=== PATIENT | male | born 1955 | race Caucasian/White ===

== ENCOUNTER 2018-06-14 19:17 | Inpatient (IN) | payer BC ==
[2018-06-14] MEDS ORDERED: Ondansetron 4 MG/2 ML SDV IVPUSH ONE (19:58)
[2018-06-14] MEDS ORDERED: Sodium Chloride 0.9% 1,000 ML IV STA (19:58)
[2018-06-14] MEDS ORDERED: HYDROmorphone 1 MG/ML Syringe IVPUSH ONE ×2 (19:59→22:02)
[2018-06-14] MEDS: Sodium Chloride 0.9% 10 ML Syringe FLUSH PRN ×2 (20:14→21:57)
--- NOTE | 2018-06-14 20:43 | EDM.PDOC ---
ED HPI GENERAL MEDICAL PROBLEM - General Chief Complaint: Abdominal Pain Stated Complaint: ABDOMINAL PAIN Time Seen by Provider: 06/14/18 19:32 Source of Information: Reports: Patient History Limitations: Reports: No Limitations - History of Present Illness INITIAL COMMENTS - FREE TEXT/NARRATIVE: The patient presents with generalized abdominal pain. This started earlier today. He denies nausea, vomiting, diarrhea or dysuria. He says the pain is sharp and knife like. He had his appendix removed years ago and he says the pain is like that but worse. He still has his gallbladder. He developed chills tonight. He has not been around anyone who is sick and he has not eaten any bad food. He denies chest pain. He says the pain is made worse by deep breathing. Onset: Gradual Duration: Hour(s): Location: Reports: Abdomen Quality: Reports: Sharp Severity: Moderate Improves with: Reports: None Worsens with: Reports: None Associated Symptoms: Reports: Fever/Chills. Denies: Chest Pain, Cough, Headaches, Nausea/Vomiting, Shortness of Breath Abdominal Pain Score (Numeric/FACES): 9 - Related Data Allergies Allergy/AdvReac Type Severity Reaction Status Date / Time No Known Allergies Allergy Verified 04/26/14 08:07 Home Meds: Home Meds Aspirin [Halfprin] 81 mg PO DAILY 06/14/18 [History] Chlorthalidone 25 mg PO DAILY 06/14/18 [History] Pravastatin Sodium 10 mg PO DAILY 06/14/18 [History] Tiotropium Br/Olodaterol HCl [Stiolto Respimat Inhal [place]] 2 puff INH DAILY 04/03 [History] buPROPion HCl [Wellbutrin Xl] 150 mg PO DAILY 06/14/18 [History] Past Medical History HEENT History: Reports: Impaired Vision Cardiovascular History: Reports: High Cholesterol Respiratory History: Reports: COPD, Pulmonary Fibrosis, Sleep Apnea Psychiatric History: Reports: Depression - Past Surgical History GI Surgical History: Reports: Appendectomy Musculoskeletal Surgical History: Reports: Shoulder Surgery Social & Family History - Family History Family Medical History: Noncontributory - Tobacco Use Smoking Status *Q: Former Smoker Used Tobacco, but Quit: Yes Month/Year Tobacco Last Used: 1998 - Caffeine Use Caffeine Use: Reports: Coffee - Recreational Drug Use Recreational Drug Use: No ED ROS GENERAL - Review of Systems Review Of Systems: See Below Constitutional: Reports: Chills. Denies: Fever HEENT: Reports: No Symptoms Respiratory: Reports: No Symptoms Cardiovascular: Reports: No Symptoms Endocrine: Reports: No Symptoms GI/Abdominal: Reports: Abdominal Pain. Denies: Diarrhea, Nausea, Vomiting : Reports: No Symptoms Musculoskeletal: Reports: No Symptoms ED EXAM, GI/ABD - Physical Exam Exam: See Below Exam Limited By: No Limitations General Appearance: Alert, No Apparent Distress Ears: Normal External Exam Nose: Normal Inspection Head: Atraumatic, Normocephalic Neck: Normal Inspection Respiratory/Chest: No Respiratory Distress, Lungs Clear, Normal Breath Sounds Cardiovascular: Regular Rate, Rhythm, No Edema, No Murmur GI/Abdominal Exam: Soft, No Organomegaly, No Mass, Distended (mild), Tender ( Moderate generalized pain upon palpation) Course - Vital Signs Last Recorded V/S: Last Vital Signs Temp 97.1 F 06/14/18 19:35 Pulse 59 L 06/14/18 19:35 Resp 16 06/14/18 19:35 BP 161/101 H 06/14/18 19:35 Pulse Ox 96 06/14/18 19:35 - Orders/Labs/Meds Orders: Active Orders 24 hr Category Date Time Status Peripheral IV Care [RC] . DIRECTED Care 06/14/18 19:58 Active Abdomen Ltd [US] Stat Exams 06/14/18 23:27 Ordered Abdomen Pelvis w Cont [CT] Stat Exams 06/14/18 19:58 Ordered ETOH [ETHANOL BLOOD MEDICAL] [CHEM] Stat Lab 06/15/18 00:04 Received Sodium Chloride 0.9% [Normal Saline] 1,000 ml Med 06/14/18 22:45 Active IV ASDIRECTED Sodium Chloride 0.9% [Saline Flush] Med 06/14/18 19:58 Active 10 ml FLUSH ASDIRECTED PRN ED Antiemetic Medication Reflex [OM.PC] Stat Oth 06/14/18 19:58 Ordered Peripheral IV Insertion Adult [OM.PC] Stat Oth 06/14/18 19:58 Ordered Medication Orders Sodium Chloride (Normal Saline) 1,000 mls @ 150 mls/hr IV ASDIRECTED ADINA Last Admin: 06/14/18 22:41 Dose: 150 mls/hr Sodium Chloride (Saline Flush) 10 ml FLUSH ASDIRECTED PRN PRN Reason: Keep Vein Open Last Admin: 06/14/18 21:57 Dose: 10 ml Admin: 06/14/18 20:14 Dose: 10 ml Labs: Laboratory Tests 06/14/18 06/14/18 06/14/18 Range/Units 19:52 19:52 22:00 WBC 12.24 H (4.23-9.07) K/mm3 RBC 5.41 (4.63-6.08) M/mm3 Hgb 16.2 (13.7-17.5) gm/L Hct 46.5 (40.1-51.0) % MCV 86.0 (79.0-92.2) fl MCH 29.9 (25.7-32.2) pg MCHC 34.8 (32.2-35.5) g/dl RDW Std Deviation 40.9 (35.1-43.9) fL Plt Count 153 L (163-337) K/mm3 Neut % (Auto) 91.4 H (34.0-67.9) % Lymph % (Auto) 4.5 L (21.8-53.1) % [place] % (Auto) 3.7 L (5.3-12.2) % Eos % (Auto) 0.1 L (0.8-7.0) Baso % (Auto) 0.2 (0.1-1.2) % Neut # (Auto) 11.20 H (1.78-5.38) K/mm3 Lymph # (Auto) 0.55 L (1.32-3.57) K/mm3 [place] # (Auto) 0.45 (0.30-0.82) K/mm3 Eos # (Auto) 0.01 L (0.04-0.54) K/mm3 Baso # (Auto) 0.02 (0.01-0.08) K/mm3 Manual Slide Review Abnormal smear Sodium 139 (136-145) mEq/L Potassium 2.9 L (3.5-5.1) mEq/L Chloride 101 (98-107) mEq/L Carbon Dioxide 27 (21-32) mEq/L Anion Gap 13.9 (5-15) BUN 18 (7-18) mg/dL Creatinine 1.3 (0.7-1.3) mg/dL Est Cr Clr Drug Dosing 58.46 mL/min Estimated GFR (MDRD) 56 (>60) mL/min BUN/Creatinine Ratio 13.8 L (14-18) Glucose 180 H (74-106) mg/dL Calcium 9.6 (8.5-10.1) mg/dL Total Bilirubin 0.9 (0.2-1.0) mg/dL AST 50 H (15-37) U/L ALT 70 H (16-63) U/L Alkaline Phosphatase 69 (46-116) U/L Total Protein 7.3 (6.4-8.2) g/dl Albumin 4.4 (3.4-5.0) g/dl Globulin 2.9 gm/dL Albumin/Globulin Ratio 1.5 (1-2) Lipase 61473 H (73-393) U/L Urine Color Yellow (Yellow) Urine Appearance Clear (Clear) Urine pH 7.0 (5.0-8.0) Ur Specific [place] 1.020 (1.005-1.030) Urine Protein Trace H (Negative) Urine Glucose (UA) Negative (Negative) Urine Ketones 3+ H (Negative) Urine Occult Blood Negative (Negative) Urine Nitrite Negative (Negative) Urine Bilirubin Negative (Negative) Urine Urobilinogen 0.2 (0.2-1.0) Ur Leukocyte Esterase Negative (Negative) Urine RBC Not seen (0-5) /hpf Urine WBC Not seen (0-5) /hpf Ur Epithelial Cells Not seen (0-5) /hpf Urine Bacteria Occasional (FEW) /hpf Urine Mucus Rare H (FEW) /hpf Meds: Medications Generic Name Dose Route Start Last Admin Trade Name Freq PRN Reason Stop Dose Admin Sodium Chloride 1,000 mls @ 150 mls/hr 06/14/18 22:45 06/14/18 22:41 Normal Saline IV 150 mls/hr ASDIRECTED ADINA Administration Sodium Chloride 10 ml 06/14/18 19:58 06/14/18 21:57 Saline Flush FLUSH 10 ml ASDIRECTED PRN Administration Keep Vein Open Discontinued Medications Generic Name Dose Route Start Last Admin Trade Name Freq PRN Reason Stop Dose Admin Diatrizoate Meglum/Diatrizoate Sod 90 ml 06/14/18 21:24 06/14/18 21:56 Gastrografin 37% PO 06/14/18 21:25 90 ml ONETIME ONE Administration Hydromorphone HCl 1 mg 06/14/18 19:59 06/14/18 20:14 Dilaudid IVPUSH 06/14/18 20:00 1 mg ONETIME ONE Administration Hydromorphone HCl 1 mg 06/14/18 22:02 06/14/18 22:10 Dilaudid IVPUSH 06/14/18 22:03 1 mg ONETIME ONE Administration Sodium Chloride 1,000 mls @ 1,000 mls/hr 06/14/18 19:58 06/14/18 20:14 Normal Saline IV 06/14/18 20:57 1,000 mls/hr .BOLUS STA Administration Iopamidol 100 ml 06/14/18 21:24 06/14/18 21:56 Isovue-370 (76%) IV 06/14/18 21:25 100 ml ONETIME ONE Administration Ondansetron HCl 4 mg 06/14/18 19:58 06/14/18 20:14 Zofran IVPUSH 06/14/18 19:59 4 mg ONETIME ONE Administration - Re-Assessments/Exams Free Text/Narrative Re-Assessment/Exam: 06/14/18 20:45 I ordered an IV NS 500ml bolus, zofran 4mg IV, dilaudid 1mg IV, labs, UA and a CT of his abdomen and pelvis. 06/15/18 00:27 His WBC was elevated at 12.24. His K was low at 2.9. His glucose was elevated at 180. His AST was elevated at 50 and ALT is 70. His lipase is very elevated at 18,290. I asked the patient if he drinks and he says no not for 20 years. I ordered a CT and it showed acute pancreatitis. Possible gallbladder wall thickening. Correlate with right upper quadrant US if indicated.d Right basilar atelectasis/infiltrate. I ordered and US and it did not show any gallbladder wall thickening or duct dilatation. I talked to Dr Vergara and she agreed to the admission. Departure - Departure Time of Disposition: 00:30 Disposition: Admitted As Inpatient 68 Condition: Serious Clinical Impression: Pancreatitis Qualifiers: Chronicity: acute Pancreatitis type: other Acute pancreatitis complication: no infection or necrosis Qualified Code(s): K85.80 - Other acute pancreatitis without necrosis or infection - Discharge Information Referrals: Yessi Arthur NP [Primary Care Provider] - Forms: ED Department Discharge - My Orders Last 24 Hours: My Active Orders 06/14/18 19:58 Peripheral IV Care [RC] . DIRECTED Abdomen Pelvis w Cont [CT] Stat Sodium Chloride 0.9% [Saline Flush] 10 ml FLUSH ASDIRECTED PRN ED Antiemetic Medication Reflex [OM.PC] Stat Peripheral IV Insertion Adult [OM.PC] Stat 06/14/18 22:45 Sodium Chloride 0.9% [Normal Saline] 1,000 ml IV ASDIRECTED 06/14/18 23:27 Abdomen Ltd [US] Stat 06/15/18 00:04 ETOH [ETHANOL BLOOD MEDICAL] [CHEM] Stat - Assessment/Plan Last 24 Hours: My Active Orders 06/14/18 19:58 Peripheral IV Care [RC] . DIRECTED Abdomen Pelvis w Cont [CT] Stat Sodium Chloride 0.9% [Saline Flush] 10 ml FLUSH ASDIRECTED PRN ED Antiemetic Medication Reflex [OM.PC] Stat Peripheral IV Insertion Adult [OM.PC] Stat 06/14/18 22:45 Sodium Chloride 0.9% [Normal Saline] 1,000 ml IV ASDIRECTED 06/14/18 23:27 Abdomen Ltd [US] Stat 06/15/18 00:04 ETOH [ETHANOL BLOOD MEDICAL] [CHEM] Stat
[2018-06-14] MEDS ORDERED: Iopamidol 755 Mg/ML 200 ML Bottle IV ONE (21:24)
[2018-06-14] MEDS ORDERED: Diatrizoate Meglumine/Diatrizoate Sodium 37% 120 ML Bottle PO ONE (21:24)
[2018-06-14] MEDS ORDERED: Sodium Chloride 0.9% 1,000 ML IV SCH (22:45)
[2018-06-15] MEDS ORDERED: HYDROmorphone 1 MG/ML Syringe IVPUSH ONE ×2 (01:05→01:58)
[2018-06-15] MEDS ORDERED: HYDROmorphone 1 MG/ML Syringe ONE (01:45)
[2018-06-15] MEDS ORDERED: Ondansetron 4 MG/2 ML SDV IVPUSH PRN (02:37)
[2018-06-15] MEDS ORDERED: HYDROmorphone 1 MG/ML Syringe IVPUSH PRN (02:38)
[2018-06-15] MEDS ORDERED: NS + KCl 20mEq/L 1,000 ML IV SCH (02:45)
[2018-06-15] MEDS: Potassium Chloride 10 MEQ in Premix Bag 1 BAG IV SCH ×2 (04:16→05:40)
[2018-06-15] MEDS: HYDROmorphone 1 MG/ML Syringe IVPUSH PRN ×4 (05:33→20:43)
[2018-06-15] MEDS: NS + KCl 20mEq/L 1,000 ML IV SCH ×3 (05:33→20:44)
--- NOTE | 2018-06-15 07:17 | US ---
Limited abdominal ultrasound: Multiple real-time images of the upper right abdomen were obtained. Comparison: No prior abdominal imaging. Technologist's note: Extremely limited exam due to overlying bowel gas, intercostal scan, limited window Pancreas poorly seen. Small portion of the visualized portions appear within normal limits. Liver shows no discrete abnormality. Right kidney shows no hydronephrosis or mass and has a length of 11.1 cm. No shadowing gallstones are seen. Gallbladder wall shows no discrete thickening. Common bile duct is normal in size. Inferior vena cava is patent. Portal vein shows normal hepatopedal flow. Impression: 1. Less than optimal study as noted above. No discrete abnormality is appreciated on right upper quadrant abdominal ultrasound. Diagnostic code #2 I agree with preliminary report from [facility], finalized on 06/15/18, 1:42 AM Central Time
--- NOTE | 2018-06-15 07:17 | CT ---
CT abdomen and pelvis Technique: Multiple axial sections were obtained from above the dome of the diaphragm inferiorly through the pubic symphysis. Intravenous and oral contrast was utilized. Comparison no prior abdominal imaging. Findings: Atelectasis is noted within both lung bases, worse on the right side. Small amount of contrast reflux is noted into the distal esophagus. Liver contains no focal abnormality. Gallbladder shows no calcified gallstones. Spleen appears within normal limits. Inflammatory change noted around the pancreas. Adrenal glands show no nodule. Kidneys show symmetric contrast enhancement with no hydronephrosis or mass. Abdominal aorta shows atherosclerotic change which continues into the iliac vessels. No retroperitoneal adenopathy or mesenteric abnormalities are seen. No pelvic mass or adenopathy is noted. Small fat-containing right inguinal hernia is seen. Bone window settings were reviewed which show disc space narrowing at L5-S1. Impression: 1. Mild inflammatory change around the pancreas having the appearance of pancreatitis. No abscess or phlegmon seen at this time. 2. Atelectasis within both lung bases, worse on the right side. 3. Other incidental findings. Diagnostic code #3 I agree with preliminary report from [facility], finalized on 06/15/18, 12:24 AM Central Time
--- NOTE | 2018-06-15 10:57 | PCM.SN ---
- Free Text/Narrative Note: Patient admitted for pancreatitis. No gallstones noted on US of RUQ. No surgical intervention needed. Would monitor for complications of pancreatitis ( mostly development of pseudocyst within next month or so). For now just fluids and pain control needed.
[2018-06-15] MEDS: OLODATEROL HCL INH SCH (13:55)
[2018-06-15] MEDS: TIOTROPIUM BR INH SCH (13:55)
--- NOTE | 2018-06-15 16:07 | PCM.PN ---
- General Info Date of Service: 06/15/18 - Patient Data Vitals - Most Recent: Last Vital Signs Temp 36.7 C 06/15/18 09:14 Pulse 67 06/15/18 09:14 Resp 15 06/15/18 09:14 BP 107/66 06/15/18 09:14 Pulse Ox 96 06/15/18 15:26 Weight - Most Recent: 87.226 kg I&O - Last 24 Hours: Intake & Output 06/15/18 06/15/18 06/15/18 06:59 14:59 22:59 Intake Total 650 Output Total 400 Balance 250 Lab Results Last 24 Hours: Laboratory Results - last 24 hr 06/14/18 06/14/18 06/14/18 Range/Units 19:52 19:52 19:52 WBC 12.24 H (4.23-9.07) K/mm3 RBC 5.41 (4.63-6.08) M/mm3 Hgb 16.2 (13.7-17.5) gm/L Hct 46.5 (40.1-51.0) % MCV 86.0 (79.0-92.2) fl MCH 29.9 (25.7-32.2) pg MCHC 34.8 (32.2-35.5) g/dl RDW Std Deviation 40.9 (35.1-43.9) fL Plt Count 153 L (163-337) K/mm3 Neut % (Auto) 91.4 H (34.0-67.9) % Lymph % (Auto) 4.5 L (21.8-53.1) % [place] % (Auto) 3.7 L (5.3-12.2) % Eos % (Auto) 0.1 L (0.8-7.0) Baso % (Auto) 0.2 (0.1-1.2) % Neut # (Auto) 11.20 H (1.78-5.38) K/mm3 Lymph # (Auto) 0.55 L (1.32-3.57) K/mm3 [place] # (Auto) 0.45 (0.30-0.82) K/mm3 Eos # (Auto) 0.01 L (0.04-0.54) K/mm3 Baso # (Auto) 0.02 (0.01-0.08) K/mm3 Manual Slide Review Abnormal smear Sodium 139 (136-145) mEq/L Potassium 2.9 L (3.5-5.1) mEq/L Chloride 101 (98-107) mEq/L Carbon Dioxide 27 (21-32) mEq/L Anion Gap 13.9 (5-15) BUN 18 (7-18) mg/dL Creatinine 1.3 (0.7-1.3) mg/dL Est Cr Clr Drug Dosing 58.46 mL/min Estimated GFR (MDRD) 56 (>60) mL/min BUN/Creatinine Ratio 13.8 L (14-18) Glucose 180 H (74-106) mg/dL Lactic Acid (0.4-2.0) mmol/L Calcium 9.6 (8.5-10.1) mg/dL Magnesium (1.8-2.4) mg/dl Total Bilirubin 0.9 (0.2-1.0) mg/dL AST 50 H (15-37) U/L ALT 70 H (16-63) U/L Alkaline Phosphatase 69 (46-116) U/L Total Protein 7.3 (6.4-8.2) g/dl Albumin 4.4 (3.4-5.0) g/dl Globulin 2.9 gm/dL Albumin/Globulin Ratio 1.5 (1-2) Lipase 09182 H (73-393) U/L Urine Color (Yellow) Urine Appearance (Clear) Urine pH (5.0-8.0) Ur Specific [place] (1.005-1.030) Urine Protein (Negative) Urine Glucose (UA) (Negative) Urine Ketones (Negative) Urine Occult Blood (Negative) Urine Nitrite (Negative) Urine Bilirubin (Negative) Urine Urobilinogen (0.2-1.0) Ur Leukocyte Esterase (Negative) Urine RBC (0-5) /hpf Urine WBC (0-5) /hpf Ur Epithelial Cells (0-5) /hpf Urine Bacteria (FEW) /hpf Urine Mucus (FEW) /hpf Ethyl Alcohol 0.00 (0.00) gm% 06/14/18 06/15/18 06/15/18 Range/Units 22:00 04:40 04:40 WBC 10.64 H (4.23-9.07) K/mm3 RBC 4.53 L (4.63-6.08) M/mm3 Hgb 13.7 (13.7-17.5) gm/L Hct 39.8 L (40.1-51.0) % MCV 87.9 (79.0-92.2) fl MCH 30.2 (25.7-32.2) pg MCHC 34.4 (32.2-35.5) g/dl RDW Std Deviation 41.1 (35.1-43.9) fL Plt Count 138 L (163-337) K/mm3 Neut % (Auto) 86.5 H (34.0-67.9) % Lymph % (Auto) 6.9 L (21.8-53.1) % [place] % (Auto) 5.8 (5.3-12.2) % Eos % (Auto) 0.6 L (0.8-7.0) Baso % (Auto) 0.1 (0.1-1.2) % Neut # (Auto) 9.21 H (1.78-5.38) K/mm3 Lymph # (Auto) 0.73 L (1.32-3.57) K/mm3 [place] # (Auto) 0.62 (0.30-0.82) K/mm3 Eos # (Auto) 0.06 (0.04-0.54) K/mm3 Baso # (Auto) 0.01 (0.01-0.08) K/mm3 Manual Slide Review Abnormal smear Sodium 139 (136-145) mEq/L Potassium 3.4 L (3.5-5.1) mEq/L Chloride 103 (98-107) mEq/L Carbon Dioxide 28 (21-32) mEq/L Anion Gap 11.4 (5-15) BUN 15 (7-18) mg/dL Creatinine 1.2 (0.7-1.3) mg/dL Est Cr Clr Drug Dosing 63.33 mL/min Estimated GFR (MDRD) > 60 (>60) mL/min BUN/Creatinine Ratio 12.5 L (14-18) Glucose 121 H (74-106) mg/dL Lactic Acid (0.4-2.0) mmol/L Calcium 8.5 (8.5-10.1) mg/dL Magnesium 1.8 (1.8-2.4) mg/dl Total Bilirubin 0.7 (0.2-1.0) mg/dL AST 27 (15-37) U/L ALT 54 (16-63) U/L Alkaline Phosphatase 57 (46-116) U/L Total Protein 6.1 L (6.4-8.2) g/dl Albumin 3.4 (3.4-5.0) g/dl Globulin 2.7 gm/dL Albumin/Globulin Ratio 1.3 (1-2) Lipase 6630 H (73-393) U/L Urine Color Yellow (Yellow) Urine Appearance Clear (Clear) Urine pH 7.0 (5.0-8.0) Ur Specific [place] 1.020 (1.005-1.030) Urine Protein Trace H (Negative) Urine Glucose (UA) Negative (Negative) Urine Ketones 3+ H (Negative) Urine Occult Blood Negative (Negative) Urine Nitrite Negative (Negative) Urine Bilirubin Negative (Negative) Urine Urobilinogen 0.2 (0.2-1.0) Ur Leukocyte Esterase Negative (Negative) Urine RBC Not seen (0-5) /hpf Urine WBC Not seen (0-5) /hpf Ur Epithelial Cells Not seen (0-5) /hpf Urine Bacteria Occasional (FEW) /hpf Urine Mucus Rare H (FEW) /hpf Ethyl Alcohol (0.00) gm% 06/15/18 Range/Units 04:40 WBC (4.23-9.07) K/mm3 RBC (4.63-6.08) M/mm3 Hgb (13.7-17.5) gm/L Hct (40.1-51.0) % MCV (79.0-92.2) fl MCH (25.7-32.2) pg MCHC (32.2-35.5) g/dl RDW Std Deviation (35.1-43.9) fL Plt Count (163-337) K/mm3 Neut % (Auto) (34.0-67.9) % Lymph % (Auto) (21.8-53.1) % [place] % (Auto) (5.3-12.2) % Eos % (Auto) (0.8-7.0) Baso % (Auto) (0.1-1.2) % Neut # (Auto) (1.78-5.38) K/mm3 Lymph # (Auto) (1.32-3.57) K/mm3 [place] # (Auto) (0.30-0.82) K/mm3 Eos # (Auto) (0.04-0.54) K/mm3 Baso # (Auto) (0.01-0.08) K/mm3 Manual Slide Review Sodium (136-145) mEq/L Potassium (3.5-5.1) mEq/L Chloride (98-107) mEq/L Carbon Dioxide (21-32) mEq/L Anion Gap (5-15) BUN (7-18) mg/dL Creatinine (0.7-1.3) mg/dL Est Cr Clr Drug Dosing mL/min Estimated GFR (MDRD) (>60) mL/min BUN/Creatinine Ratio (14-18) Glucose (74-106) mg/dL Lactic Acid 2.1 H (0.4-2.0) mmol/L Calcium (8.5-10.1) mg/dL Magnesium (1.8-2.4) mg/dl Total Bilirubin (0.2-1.0) mg/dL AST (15-37) U/L ALT (16-63) U/L Alkaline Phosphatase (46-116) U/L Total Protein (6.4-8.2) g/dl Albumin (3.4-5.0) g/dl Globulin gm/dL Albumin/Globulin Ratio (1-2) Lipase (73-393) U/L Urine Color (Yellow) Urine Appearance (Clear) Urine pH (5.0-8.0) Ur Specific [place] (1.005-1.030) Urine Protein (Negative) Urine Glucose (UA) (Negative) Urine Ketones (Negative) Urine Occult Blood (Negative) Urine Nitrite (Negative) Urine Bilirubin (Negative) Urine Urobilinogen (0.2-1.0) Ur Leukocyte Esterase (Negative) Urine RBC (0-5) /hpf Urine WBC (0-5) /hpf Ur Epithelial Cells (0-5) /hpf Urine Bacteria (FEW) /hpf Urine Mucus (FEW) /hpf Ethyl Alcohol (0.00) gm% Med Orders - Current: Current Medications Hydromorphone HCl (Dilaudid) 1 mg IVPUSH Q2H PRN PRN Reason: Pain Last Admin: 06/15/18 14:15 Dose: 1 mg Potassium Chloride/Sodium Chloride (Normal Saline With 20 Meq Kcl) 1,000 mls @ 125 mls/hr IV ASDIRECTED [facility] Last Admin: 06/15/18 14:14 Dose: 125 mls/hr Ondansetron HCl (Zofran) 4 mg IVPUSH Q6H PRN PRN Reason: Nausea Tiotropium Br/Olodaterol Hcl [ Stiolto Respimat] Ptom 0 each INH DAILY@0600 [facility] Last Admin: 06/15/18 13:55 Dose: 2 each Sodium Chloride (Saline Flush) 10 ml FLUSH ASDIRECTED PRN PRN Reason: Keep Vein Open Last Admin: 06/14/18 21:57 Dose: 10 ml Discontinued Medications Diatrizoate Meglum/Diatrizoate Sod (Gastrografin 37%) 90 ml PO ONETIME ONE Stop: 06/14/18 21:25 Last Admin: 06/14/18 21:56 Dose: 90 ml Hydromorphone HCl (Dilaudid) 1 mg IVPUSH ONETIME ONE Stop: 06/14/18 20:00 Last Admin: 06/14/18 20:14 Dose: 1 mg Hydromorphone HCl (Dilaudid) 1 mg IVPUSH ONETIME ONE Stop: 06/14/18 22:03 Last Admin: 06/14/18 22:10 Dose: 1 mg Hydromorphone HCl (Dilaudid) 1 mg IVPUSH ONETIME ONE Stop: 06/15/18 01:06 Last Admin: 06/15/18 01:09 Dose: 1 mg Hydromorphone HCl (Dilaudid) Confirm Administered Dose 1 mg .ROUTE .STK-MED ONE Stop: 06/15/18 01:46 Last Admin: 06/15/18 02:00 Dose: Not Given Hydromorphone HCl (Dilaudid) 1 mg IVPUSH ONETIME ONE Stop: 06/15/18 01:59 Last Admin: 06/15/18 01:45 Dose: 1 mg Sodium Chloride (Normal Saline) 1,000 mls @ 1,000 mls/hr IV .BOLUS STA Stop: 06/14/18 20:57 Last Admin: 06/14/18 20:14 Dose: 1,000 mls/hr Sodium Chloride (Normal Saline) 1,000 mls @ 150 mls/hr IV ASDIRECTED [facility] Last Admin: 06/14/18 22:41 Dose: 150 mls/hr Potassium Chloride 10 meq/ (Premix) 100 mls @ 100 mls/hr IV Q1H ADINA Stop: 06/15/18 05:59 Last Admin: 06/15/18 05:40 Dose: Not Given Iopamidol (Isovue-370 (76%)) 100 ml IV ONETIME ONE Stop: 06/14/18 21:25 Last Admin: 06/14/18 21:56 Dose: 100 ml Ondansetron HCl (Zofran) 4 mg IVPUSH ONETIME ONE Stop: 06/14/18 19:59 Last Admin: 06/14/18 20:14 Dose: 4 mg - My Orders Last 24 Hours: My Active Orders 06/15/18 02:37 Ondansetron [Zofran] 4 mg IVPUSH Q6H PRN 06/15/18 02:38 Oxygen Therapy [RC] PRN 06/15/18 02:43 Sequential Compression Device [OM.PC] Routine 06/15/18 02:44 Antiembolic Devices [RC] 09,21 CIWAA Assessment [RC] Q6HR 06/15/18 03:04 Resuscitation Status Routine 06/15/18 03:45 HYDROmorphone [Dilaudid] 1 mg IVPUSH Q2H PRN 06/15/18 09:00 Notify Provider Consults [RC] ASDIRECTED 06/15/18 14:00 Patient's Own Medication [Ptom] 0 each INH DAILY@0600 06/15/18 Breakfast NPO [Nothing Per Oral Diet] [DIET]
[2018-06-15] MEDS: Ketorolac 15 MG/ML SDV IVPUSH SCH (17:34)
[2018-06-15] MEDS: Pantoprazole 40 MG Vial IVPUSH SCH (17:34)
--- NOTE | 2018-06-15 17:41 | PCM.HP ---
H&P History of Present Illness - General Date of Service: 06/15/18 Admit Problem/Dx: Admission Diagnosis/Problem Admission Diagnosis/Problem Pancreatitis Source of Information: Patient, Family, Provider History Limitations: Reports: No Limitations - History of Present Illness Initial Comments - Free Text/Narative: 62 year old male complains of sharp, stabbing pain associated with nausea. The patient has a CT of the abdomen/pelvis that suggest mild pancreatitis. He denies fever/chills, vomiting, CP, SOB. Lipase is greater than 10, 000. There is no food intolerance. A ABD US was inconclusive. The patient is a full code. Onset of Symptoms: Reports: Sudden Symptom Onset Date: 06/14/18 Duration of Symptoms: Reports: Hour(s):, Getting Worse Location: Reports: Abdomen Quality: Reports: Sharp, Stabbing Severity: Moderate Improves with: Reports: Medication Worsens with: Reports: None Associated Symptoms: Reports: Loss of Appetite, Nausea/Vomiting, Weakness Abdominal Pain Score (Numeric/FACES): 2 - Related Data Allergies/Adverse Reactions: Allergies Allergy/AdvReac Type Severity Reaction Status Date / Time No Known Allergies Allergy Verified 06/15/18 03:08 Home Medications: Home Meds Aspirin [Halfprin] 81 mg PO DAILY 06/14/18 [History] Chlorthalidone 25 mg PO DAILY 06/14/18 [History] Pravastatin Sodium 10 mg PO DAILY 06/14/18 [History] Tiotropium Br/Olodaterol HCl [Stiolto Respimat Inhal [place]] 2 puff INH DAILY@ 0600 06/14/18 [History] buPROPion HCl [Wellbutrin Xl] 150 mg PO DAILY 06/14/18 [History] Past Medical History HEENT History: Reports: Impaired Vision Cardiovascular History: Reports: High Cholesterol Respiratory History: Reports: COPD, Pulmonary Fibrosis, Sleep Apnea Psychiatric History: Reports: Depression - Past Surgical History GI Surgical History: Reports: Appendectomy Musculoskeletal Surgical History: Reports: Shoulder Surgery Social & Family History - Family History Family Medical History: Noncontributory - Tobacco Use Smoking Status *Q: Former Smoker Used Tobacco, but Quit: Yes Month/Year Tobacco Last Used: 1998 Second Hand Smoke Exposure: No - Caffeine Use Caffeine Use: Reports: Coffee - Recreational Drug Use Recreational Drug Use: No H&P Review of Systems - Review of Systems: Review Of Systems: See Below General: Reports: Weakness, Decreased Appetite HEENT: Reports: No Symptoms Pulmonary: Reports: No Symptoms Cardiovascular: Reports: No Symptoms Gastrointestinal: Reports: Abdominal Pain, Nausea Genitourinary: Reports: No Symptoms Musculoskeletal: Reports: No Symptoms Skin: Reports: No Symptoms Psychiatric: Reports: No Symptoms Neurological: Reports: No Symptoms Hematologic/Lymphatic: Reports: No Symptoms Immunologic: Reports: No Symptoms Exam - Exam Exam: See Below - Vital Signs Vital Signs: Last Vital Signs Temp 36.6 C 06/15/18 17:14 Pulse 74 06/15/18 17:14 Resp 16 06/15/18 17:14 BP 97/56 L 06/15/18 17:14 Pulse Ox 92 L 06/15/18 17:14 Weight: 87.226 kg - Exam Quality Assessment: DVT Prophylaxis General: Alert, Oriented, Cooperative, Mild Distress HEENT: Nares Patent, Normal Nasal Septum, Pupils Equal, Pupils Reactive, PERRLA Neck: Trachea Midline Lungs: Normal Respiratory Effort Cardiovascular: Regular Rate, Regular Rhythm GI/Abdominal Exam: Normal Bowel Sounds, Soft, No Organomegaly, Tender (RUQ) (Male) Exam: Deferred Rectal (Males) Exam: Deferred Back Exam: Normal Inspection Extremities: Normal Inspection, Non-Tender, Normal Capillary Refill Neurological: Cranial Nerves Intact Neuro Extensive - Mental Status: Alert, Oriented x3, Normal Mood/Affect, Normal Cognition, Memory Intact Neuro Extensive - Motor, Sensory, Reflexes: CN II-XII Intact Psychiatric: Alert, Normal Affect, Normal Mood - Patient Data Lab Results Last 24 hrs: Laboratory Results - last 24 hr 06/14/18 06/14/18 06/14/18 Range/Units 19:52 19:52 19:52 WBC 12.24 H (4.23-9.07) K/mm3 RBC 5.41 (4.63-6.08) M/mm3 Hgb 16.2 (13.7-17.5) gm/L Hct 46.5 (40.1-51.0) % MCV 86.0 (79.0-92.2) fl MCH 29.9 (25.7-32.2) pg MCHC 34.8 (32.2-35.5) g/dl RDW Std Deviation 40.9 (35.1-43.9) fL Plt Count 153 L (163-337) K/mm3 Neut % (Auto) 91.4 H (34.0-67.9) % Lymph % (Auto) 4.5 L (21.8-53.1) % [place] % (Auto) 3.7 L (5.3-12.2) % Eos % (Auto) 0.1 L (0.8-7.0) Baso % (Auto) 0.2 (0.1-1.2) % Neut # (Auto) 11.20 H (1.78-5.38) K/mm3 Lymph # (Auto) 0.55 L (1.32-3.57) K/mm3 [place] # (Auto) 0.45 (0.30-0.82) K/mm3 Eos # (Auto) 0.01 L (0.04-0.54) K/mm3 Baso # (Auto) 0.02 (0.01-0.08) K/mm3 Manual Slide Review Abnormal smear Sodium 139 (136-145) mEq/L Potassium 2.9 L (3.5-5.1) mEq/L Chloride 101 (98-107) mEq/L Carbon Dioxide 27 (21-32) mEq/L Anion Gap 13.9 (5-15) BUN 18 (7-18) mg/dL Creatinine 1.3 (0.7-1.3) mg/dL Est Cr Clr Drug Dosing 58.46 mL/min Estimated GFR (MDRD) 56 (>60) mL/min BUN/Creatinine Ratio 13.8 L (14-18) Glucose 180 H (74-106) mg/dL Lactic Acid (0.4-2.0) mmol/L Calcium 9.6 (8.5-10.1) mg/dL Magnesium (1.8-2.4) mg/dl Total Bilirubin 0.9 (0.2-1.0) mg/dL AST 50 H (15-37) U/L ALT 70 H (16-63) U/L Alkaline Phosphatase 69 (46-116) U/L Total Protein 7.3 (6.4-8.2) g/dl Albumin 4.4 (3.4-5.0) g/dl Globulin 2.9 gm/dL Albumin/Globulin Ratio 1.5 (1-2) Lipase 38179 H (73-393) U/L Urine Color (Yellow) Urine Appearance (Clear) Urine pH (5.0-8.0) Ur Specific [place] (1.005-1.030) Urine Protein (Negative) Urine Glucose (UA) (Negative) Urine Ketones (Negative) Urine Occult Blood (Negative) Urine Nitrite (Negative) Urine Bilirubin (Negative) Urine Urobilinogen (0.2-1.0) Ur Leukocyte Esterase (Negative) Urine RBC (0-5) /hpf Urine WBC (0-5) /hpf Ur Epithelial Cells (0-5) /hpf Urine Bacteria (FEW) /hpf Urine Mucus (FEW) /hpf Ethyl Alcohol 0.00 (0.00) gm% 06/14/18 06/15/18 06/15/18 Range/Units 22:00 04:40 04:40 WBC 10.64 H (4.23-9.07) K/mm3 RBC 4.53 L (4.63-6.08) M/mm3 Hgb 13.7 (13.7-17.5) gm/L Hct 39.8 L (40.1-51.0) % MCV 87.9 (79.0-92.2) fl MCH 30.2 (25.7-32.2) pg MCHC 34.4 (32.2-35.5) g/dl RDW Std Deviation 41.1 (35.1-43.9) fL Plt Count 138 L (163-337) K/mm3 Neut % (Auto) 86.5 H (34.0-67.9) % Lymph % (Auto) 6.9 L (21.8-53.1) % [place] % (Auto) 5.8 (5.3-12.2) % Eos % (Auto) 0.6 L (0.8-7.0) Baso % (Auto) 0.1 (0.1-1.2) % Neut # (Auto) 9.21 H (1.78-5.38) K/mm3 Lymph # (Auto) 0.73 L (1.32-3.57) K/mm3 [place] # (Auto) 0.62 (0.30-0.82) K/mm3 Eos # (Auto) 0.06 (0.04-0.54) K/mm3 Baso # (Auto) 0.01 (0.01-0.08) K/mm3 Manual Slide Review Abnormal smear Sodium 139 (136-145) mEq/L Potassium 3.4 L (3.5-5.1) mEq/L Chloride 103 (98-107) mEq/L Carbon Dioxide 28 (21-32) mEq/L Anion Gap 11.4 (5-15) BUN 15 (7-18) mg/dL Creatinine 1.2 (0.7-1.3) mg/dL Est Cr Clr Drug Dosing 63.33 mL/min Estimated GFR (MDRD) > 60 (>60) mL/min BUN/Creatinine Ratio 12.5 L (14-18) Glucose 121 H (74-106) mg/dL Lactic Acid (0.4-2.0) mmol/L Calcium 8.5 (8.5-10.1) mg/dL Magnesium 1.8 (1.8-2.4) mg/dl Total Bilirubin 0.7 (0.2-1.0) mg/dL AST 27 (15-37) U/L ALT 54 (16-63) U/L Alkaline Phosphatase 57 (46-116) U/L Total Protein 6.1 L (6.4-8.2) g/dl Albumin 3.4 (3.4-5.0) g/dl Globulin 2.7 gm/dL Albumin/Globulin Ratio 1.3 (1-2) Lipase 6630 H (73-393) U/L Urine Color Yellow (Yellow) Urine Appearance Clear (Clear) Urine pH 7.0 (5.0-8.0) Ur Specific [place] 1.020 (1.005-1.030) Urine Protein Trace H (Negative) Urine Glucose (UA) Negative (Negative) Urine Ketones 3+ H (Negative) Urine Occult Blood Negative (Negative) Urine Nitrite Negative (Negative) Urine Bilirubin Negative (Negative) Urine Urobilinogen 0.2 (0.2-1.0) Ur Leukocyte Esterase Negative (Negative) Urine RBC Not seen (0-5) /hpf Urine WBC Not seen (0-5) /hpf Ur Epithelial Cells Not seen (0-5) /hpf Urine Bacteria Occasional (FEW) /hpf Urine Mucus Rare H (FEW) /hpf Ethyl Alcohol (0.00) gm% 06/15/18 Range/Units 04:40 WBC (4.23-9.07) K/mm3 RBC (4.63-6.08) M/mm3 Hgb (13.7-17.5) gm/L Hct (40.1-51.0) % MCV (79.0-92.2) fl MCH (25.7-32.2) pg MCHC (32.2-35.5) g/dl RDW Std Deviation (35.1-43.9) fL Plt Count (163-337) K/mm3 Neut % (Auto) (34.0-67.9) % Lymph % (Auto) (21.8-53.1) % [place] % (Auto) (5.3-12.2) % Eos % (Auto) (0.8-7.0) Baso % (Auto) (0.1-1.2) % Neut # (Auto) (1.78-5.38) K/mm3 Lymph # (Auto) (1.32-3.57) K/mm3 [place] # (Auto) (0.30-0.82) K/mm3 Eos # (Auto) (0.04-0.54) K/mm3 Baso # (Auto) (0.01-0.08) K/mm3 Manual Slide Review Sodium (136-145) mEq/L Potassium (3.5-5.1) mEq/L Chloride (98-107) mEq/L Carbon Dioxide (21-32) mEq/L Anion Gap (5-15) BUN (7-18) mg/dL Creatinine (0.7-1.3) mg/dL Est Cr Clr Drug Dosing mL/min Estimated GFR (MDRD) (>60) mL/min BUN/Creatinine Ratio (14-18) Glucose (74-106) mg/dL Lactic Acid 2.1 H (0.4-2.0) mmol/L Calcium (8.5-10.1) mg/dL Magnesium (1.8-2.4) mg/dl Total Bilirubin (0.2-1.0) mg/dL AST (15-37) U/L ALT (16-63) U/L Alkaline Phosphatase (46-116) U/L Total Protein (6.4-8.2) g/dl Albumin (3.4-5.0) g/dl Globulin gm/dL Albumin/Globulin Ratio (1-2) Lipase (73-393) U/L Urine Color (Yellow) Urine Appearance (Clear) Urine pH (5.0-8.0) Ur Specific [place] (1.005-1.030) Urine Protein (Negative) Urine Glucose (UA) (Negative) Urine Ketones (Negative) Urine Occult Blood (Negative) Urine Nitrite (Negative) Urine Bilirubin (Negative) Urine Urobilinogen (0.2-1.0) Ur Leukocyte Esterase (Negative) Urine RBC (0-5) /hpf Urine WBC (0-5) /hpf Ur Epithelial Cells (0-5) /hpf Urine Bacteria (FEW) /hpf Urine Mucus (FEW) /hpf Ethyl Alcohol (0.00) gm% Result Diagrams: 06/15/18 04:40 06/15/18 04:40 - Problem List (1) COPD (chronic obstructive pulmonary disease) SNOMED Code(s): 64253637 ICD Code: J44.9 - CHRONIC OBSTRUCTIVE PULMONARY DISEASE, UNSPECIFIED Status : Acute Current Visit: Yes (2) Depression SNOMED Code(s): 81661796 ICD Code: F32.9 - MAJOR DEPRESSIVE DISORDER, SINGLE EPISODE, UNSPECIFIED Status: Acute Current Visit: Yes (3) Hyperlipidemia SNOMED Code(s): 78017084 ICD Code: E78.5 - HYPERLIPIDEMIA, UNSPECIFIED Status: Acute Current Visit : Yes Problem List Initiated/Reviewed/Updated: Yes Orders Last 24hrs: Active Orders 24 hr Category Date Time Status Patient Status [ADT] Routine ADT 06/15/18 00:40 Active Antiembolic Devices [RC] 09,21 Care 06/15/18 02:44 Active CIWAA Assessment [RC] Q6HR Care 06/15/18 02:44 Active Notify Provider Consults [RC] ASDIRECTED Care 06/15/18 09:00 Active Oxygen Therapy [RC] PRN Care 06/15/18 02:38 Active NPO [Nothing Per Oral Diet] [DIET] Diet 06/15/18 Breakfast Active BMP [BASIC METABOLIC PANEL,BMP] [CHEM] DAILY Lab 06/16/18 05:00 Ordered BMP [BASIC METABOLIC PANEL,BMP] [CHEM] DAILY Lab 06/17/18 05:00 Ordered BMP [BASIC METABOLIC PANEL,BMP] [CHEM] DAILY Lab 06/18/18 05:00 Ordered BMP [BASIC METABOLIC PANEL,BMP] [CHEM] DAILY Lab 06/19/18 05:00 Ordered CBC WITH AUTO DIFF [HEME] DAILY Lab 06/16/18 05:00 Ordered CBC WITH AUTO DIFF [HEME] DAILY Lab 06/17/18 05:00 Ordered CBC WITH AUTO DIFF [HEME] DAILY Lab 06/18/18 05:00 Ordered CBC WITH AUTO DIFF [HEME] DAILY Lab 06/19/18 05:00 Ordered CRP [C-REACTIVE PROTEIN] [CHEM] DAILY Lab 06/16/18 05:00 Ordered CRP [C-REACTIVE PROTEIN] [CHEM] DAILY Lab 06/17/18 05:00 Ordered CRP [C-REACTIVE PROTEIN] [CHEM] DAILY Lab 06/18/18 05:00 Ordered CRP [C-REACTIVE PROTEIN] [CHEM] DAILY Lab 06/19/18 05:00 Ordered LIPASE [CHEM] DAILY Lab 06/16/18 05:00 Ordered LIPASE [CHEM] DAILY Lab 06/17/18 05:00 Ordered LIPASE [CHEM] DAILY Lab 06/18/18 05:00 Ordered LIPASE [CHEM] DAILY Lab 06/19/18 05:00 Ordered MAGNESIUM [CHEM] DAILY Lab 06/16/18 05:00 Ordered MAGNESIUM [CHEM] DAILY Lab 06/17/18 05:00 Ordered MAGNESIUM [CHEM] DAILY Lab 06/18/18 05:00 Ordered MAGNESIUM [CHEM] DAILY Lab 06/19/18 05:00 Ordered HYDROmorphone [Dilaudid] Med 06/15/18 03:45 Active 1 mg IVPUSH Q2H PRN Ketorolac [Toradol] Med 06/15/18 18:00 Active 15 mg IVPUSH Q8H NS + KCl 20mEq/L [Normal Saline with 20 mEq KCl] 1,000 Med 06/15/18 00:45 Active ml IV ASDIRECTED Ondansetron [Zofran] Med 06/15/18 02:37 Active 4 mg IVPUSH Q6H PRN Pantoprazole [ProTONIX IV] Med 06/15/18 18:00 Active 40 mg IVPUSH Q12H Patient's Own Medication [Ptom] Med 06/15/18 14:00 Active 0 each INH DAILY@0600 Simvastatin [Zocor] Med 06/16/18 21:00 Active 5 mg PO BEDTIME Sodium Chloride 0.9% [Saline Flush] Med 06/14/18 19:58 Active 10 ml FLUSH ASDIRECTED PRN buPROPion [Wellbutrin XL] Med 06/16/18 09:00 Active 150 mg PO DAILY ED Antiemetic Medication Reflex [OM.PC] Stat Oth 06/14/18 19:58 Ordered Peripheral IV Insertion Adult [OM.PC] Stat Oth 06/14/18 19:58 Ordered Sequential Compression Device [OM.PC] Routine Oth 06/15/18 02:43 Ordered Resuscitation Status Routine Resus Stat 06/15/18 03:04 Ordered Medication Orders Bupropion HCl (Wellbutrin Xl) 150 mg PO DAILY [facility] Hydromorphone HCl (Dilaudid) 1 mg IVPUSH Q2H PRN PRN Reason: Pain Last Admin: 06/15/18 14:15 Dose: 1 mg Admin: 06/15/18 09:45 Dose: 1 mg Admin: 06/15/18 05:33 Dose: 1 mg Potassium Chloride/Sodium Chloride (Normal Saline With 20 Meq Kcl) 1,000 mls @ 125 mls/hr IV ASDIRECTED [facility] Last Admin: 06/15/18 14:14 Dose: 125 mls/hr Infusion: 06/15/18 13:33 Dose: 125 mls/hr Admin: 06/15/18 05:33 Dose: 125 mls/hr Ketorolac Tromethamine (Toradol) 15 mg IVPUSH Q8H [facility] Stop: 06/17/18 10:01 Last Admin: 06/15/18 17:34 Dose: 15 mg Ondansetron HCl (Zofran) 4 mg IVPUSH Q6H PRN PRN Reason: Nausea Pantoprazole Sodium (Protonix Iv) 40 mg IVPUSH Q12H [facility] Last Admin: 06/15/18 17:34 Dose: 40 mg Tiotropium Br/Olodaterol Hcl [ Stiolto Respimat] Ptom 0 each INH DAILY@0600 [facility] Last Admin: 06/15/18 13:55 Dose: 2 each Simvastatin (Zocor) 5 mg PO BEDTIME [facility] Sodium Chloride (Saline Flush) 10 ml FLUSH ASDIRECTED PRN PRN Reason: Keep Vein Open Last Admin: 06/14/18 21:57 Dose: 10 ml Admin: 06/14/18 20:14 Dose: 10 ml Assessment/Plan Comment:: Impression: Acute pancreatitis, NOS Dehydration Hypokalemia Chronic HTN HLD Depression Plan: IVF Pain meds NPO except meds and ice chips Daily labs Home meds DVT/GI prophylaxis
[2018-06-16] MEDS: Ketorolac 15 MG/ML SDV IVPUSH SCH ×3 (02:58→18:14)
[2018-06-16] MEDS: TIOTROPIUM BR INH SCH (05:28)
[2018-06-16] MEDS: OLODATEROL HCL INH SCH (05:28)
[2018-06-16] MEDS: NS + KCl 20mEq/L 1,000 ML IV SCH (05:43)
[2018-06-16] MEDS: Pantoprazole 40 MG Vial IVPUSH SCH (05:43)
[2018-06-16] MEDS: HYDROmorphone 1 MG/ML Syringe IVPUSH PRN (05:49)
[2018-06-16] MEDS ORDERED: Magnesium Sulfate/Water 4 GM in Premix Bag 1 BAG IV ONE (08:05)
[2018-06-16] MEDS ORDERED: Sodium Chloride 0.9% with KCl 1,000 ML IV SCH (08:15)
[2018-06-16] MEDS: buPROPion 150 MG Tab.ER PO SCH (09:55)
[2018-06-16] MEDS: Potassium Chloride 10 MEQ in Premix Bag 1 BAG IV SCH ×2 (09:57→12:00)
--- NOTE | 2018-06-16 16:08 | PCM.PN ---
- General Info Date of Service: 06/16/18 Admission Dx/Problem (Free Text): Admission Diagnosis/Problem Admission Diagnosis/Problem Pancreatitis Subjective Update: Follow Up Functional Status: Reports: Pain Controlled, Tolerating Diet, Ambulating, Urinating, New Symptoms - Review of Systems General: Denies: Fever, Chills HEENT: Reports: No Symptoms Pulmonary: Denies: Shortness of Breath Cardiovascular: Denies: Chest Pain, Dyspnea on Exertion, Lightheadedness Gastrointestinal: Reports: Abdominal Pain (mild), Flatus. Denies: Decreased Appetite, Diarrhea, Difficulty Swallowing, Nausea, Vomiting Genitourinary: Reports: No Symptoms Musculoskeletal: Reports: No Symptoms Skin: Denies: Cyanosis, Bruising Neurological: Reports: Weakness. Denies: Confusion, Difficulty Walking, Gait Disturbance Psychiatric: Denies: Depression, Anxiety, Agitation, Hallucinations Systems Review Comment:: No overnight or acute issues. He feels much better today and is now tolerating clear liquid diet. His K and Mg were low this AM. His vitals are stable. - Patient Data Vitals - Most Recent: Last Vital Signs Temp 36.7 C 06/16/18 07:14 Pulse 77 06/16/18 07:14 Resp 16 06/16/18 07:14 BP 94/62 06/16/18 07:14 Pulse Ox 95 06/16/18 07:14 Weight - Most Recent: 87.952 kg I&O - Last 24 Hours: Intake & Output 06/16/18 06/16/18 06/16/18 06:59 14:59 22:59 Intake Total 1162 320 Output Total 1000 Balance 162 320 Lab Results Last 24 Hours: Laboratory Results - last 24 hr 06/16/18 06/16/18 06/16/18 Range/Units 06:10 06:10 06:10 WBC 10.64 H (4.23-9.07) K/mm3 RBC 4.47 L (4.63-6.08) M/mm3 Hgb 13.5 L (13.7-17.5) gm/L Hct 39.9 L (40.1-51.0) % MCV 89.3 (79.0-92.2) fl MCH 30.2 (25.7-32.2) pg MCHC 33.8 (32.2-35.5) g/dl RDW Std Deviation 43.0 (35.1-43.9) fL Plt Count 127 L (163-337) K/mm3 Neut % (Auto) 80.7 H (34.0-67.9) % Lymph % (Auto) 8.8 L (21.8-53.1) % [place] % (Auto) 8.9 (5.3-12.2) % Eos % (Auto) 1.2 (0.8-7.0) Baso % (Auto) 0.2 (0.1-1.2) % Neut # (Auto) 8.58 H (1.78-5.38) K/mm3 Lymph # (Auto) 0.94 L (1.32-3.57) K/mm3 [place] # (Auto) 0.95 H (0.30-0.82) K/mm3 Eos # (Auto) 0.13 (0.04-0.54) K/mm3 Baso # (Auto) 0.02 (0.01-0.08) K/mm3 Manual Slide Review Abnormal smear Sodium 138 (136-145) mEq/L Potassium 3.2 L (3.5-5.1) mEq/L Chloride 104 (98-107) mEq/L Carbon Dioxide 24 (21-32) mEq/L Anion Gap 13.2 (5-15) BUN 12 (7-18) mg/dL Creatinine 1.1 (0.7-1.3) mg/dL Est Cr Clr Drug Dosing 69.09 mL/min Estimated GFR (MDRD) > 60 (>60) mL/min BUN/Creatinine Ratio 10.9 L (14-18) Glucose 78 (74-106) mg/dL Calcium 7.8 L (8.5-10.1) mg/dL Magnesium 1.4 L (1.8-2.4) mg/dl C-Reactive Protein 13.8 H* (<1.0) mg/dL Triglycerides 85 (<150) mg/dL Cholesterol 93 (<200) mg/dL LDL Cholesterol Direct 44 (<100) mg/dL HDL Cholesterol 36.0 L (40-59) mg/dL Lipase 759 H (73-393) U/L Med Orders - Current: Current Medications Bupropion HCl (Wellbutrin Xl) 150 mg PO DAILY [facility] Last Admin: 06/16/18 09:55 Dose: 150 mg Famotidine (Pepcid) 20 mg IVPUSH BID [facility] Stop: 06/17/18 09:01 Famotidine (Pepcid) 20 mg PO BID [facility] Hydromorphone HCl (Dilaudid) 1 mg IVPUSH Q2H PRN PRN Reason: Pain Last Admin: 06/16/18 05:49 Dose: 1 mg Potassium Chloride/Sodium Chloride (Normal Saline With 40 Meq Kcl) 1,000 mls @ 125 mls/hr IV ASDIRECTED [facility] Last Admin: 06/16/18 09:57 Dose: 125 mls/hr Ketorolac Tromethamine (Toradol) 15 mg IVPUSH Q8H [facility] Stop: 06/17/18 10:01 Last Admin: 06/16/18 09:58 Dose: Not Given Ondansetron HCl (Zofran) 4 mg IVPUSH Q6H PRN PRN Reason: Nausea Tiotropium Br/Olodaterol Hcl [ Stiolto Respimat] Ptom 0 each INH DAILY@0600 [facility] Last Admin: 06/16/18 05:28 Dose: 2 each Simvastatin (Zocor) 5 mg PO BEDTIME [facility] Sodium Chloride (Saline Flush) 10 ml FLUSH ASDIRECTED PRN PRN Reason: Keep Vein Open Last Admin: 06/14/18 21:57 Dose: 10 ml Discontinued Medications Diatrizoate Meglum/Diatrizoate Sod (Gastrografin 37%) 90 ml PO ONETIME ONE Stop: 06/14/18 21:25 Last Admin: 06/14/18 21:56 Dose: 90 ml Hydromorphone HCl (Dilaudid) 1 mg IVPUSH ONETIME ONE Stop: 06/14/18 20:00 Last Admin: 06/14/18 20:14 Dose: 1 mg Hydromorphone HCl (Dilaudid) 1 mg IVPUSH ONETIME ONE Stop: 06/14/18 22:03 Last Admin: 06/14/18 22:10 Dose: 1 mg Hydromorphone HCl (Dilaudid) 1 mg IVPUSH ONETIME ONE Stop: 06/15/18 01:06 Last Admin: 06/15/18 01:09 Dose: 1 mg Hydromorphone HCl (Dilaudid) Confirm Administered Dose 1 mg .ROUTE .STK-MED ONE Stop: 06/15/18 01:46 Last Admin: 06/15/18 02:00 Dose: Not Given Hydromorphone HCl (Dilaudid) 1 mg IVPUSH ONETIME ONE Stop: 06/15/18 01:59 Last Admin: 06/15/18 01:45 Dose: 1 mg Sodium Chloride (Normal Saline) 1,000 mls @ 1,000 mls/hr IV .BOLUS STA Stop: 06/14/18 20:57 Last Admin: 06/14/18 20:14 Dose: 1,000 mls/hr Sodium Chloride (Normal Saline) 1,000 mls @ 150 mls/hr IV ASDIRECTED [facility] Last Admin: 06/14/18 22:41 Dose: 150 mls/hr Potassium Chloride/Sodium Chloride (Normal Saline With 20 Meq Kcl) 1,000 mls @ 125 mls/hr IV ASDIRECTED [facility] Last Admin: 06/16/18 05:43 Dose: 125 mls/hr Potassium Chloride 10 meq/ (Premix) 100 mls @ 100 mls/hr IV Q1H [facility] Stop: 06/15/18 05:59 Last Admin: 06/15/18 05:40 Dose: Not Given Potassium Chloride 10 meq/ (Premix) 100 mls @ 50 mls/hr IV Q2H [facility] Stop: 06/16/18 12:14 Last Admin: 06/16/18 12:00 Dose: 50 mls/hr Magnesium Sulfate 4 gm/ Premix 50 mls @ 12.5 mls/hr IV ONETIME ONE Stop: 06/16/18 12:04 Last Admin: 06/16/18 09:56 Dose: 12.5 mls/hr Iopamidol (Isovue-370 (76%)) 100 ml IV ONETIME ONE Stop: 06/14/18 21:25 Last Admin: 06/14/18 21:56 Dose: 100 ml Ondansetron HCl (Zofran) 4 mg IVPUSH ONETIME ONE Stop: 06/14/18 19:59 Last Admin: 06/14/18 20:14 Dose: 4 mg Pantoprazole Sodium (Protonix Iv) 40 mg IVPUSH Q12H [facility] Last Admin: 06/16/18 05:43 Dose: 40 mg - Exam General: Alert, Oriented, Cooperative, No Acute Distress, Mild Distress HEENT: Pupils Equal, Pupils Reactive, Mucous Membr. Moist/[place] Neck: Supple Lungs: Clear to Auscultation, Normal Respiratory Effort Cardiovascular: Regular Rate, Regular Rhythm GI/Abdominal Exam: Normal Bowel Sounds, Soft, No Organomegaly, No Distention, No Abnormal Bruit, Tender (on deep palpation on upper and lowe quadrant) (Male) Exam: Deferred Back Exam: Normal Inspection, Decreased Range of Motion Extremities: Normal Inspection, Normal Range of Motion, Non-Tender, No Pedal Edema, Normal Capillary Refill Skin: Warm, Dry, Intact Neurological: No New Focal Deficit Psy/Mental Status: Alert, Normal Affect, Normal Mood - Problem List Review Problem List Initiated/Reviewed/Updated: Yes - My Orders Last 24 Hours: My Active Orders 06/16/18 21:00 Famotidine [Pepcid] 20 mg IVPUSH BID 06/16/18 Dinner Full Liquid Diet [DIET] 06/17/18 21:00 Famotidine [Pepcid] 20 mg PO BID - Plan Plan:: Assessment/Plan: Acute: Pancreatitis - 2/2 Rapid weight loss on keto diet; less likely his thiazide medication since he is on it for quite some time - Loss about 18 lbs per - CT scan and Abdominal U/S showed no obvious acute abnormal findings - Lipase 68365-->6630-->759; CRP 13.8; WBC 12.24-->10.64; Afebrile - Per he quit drinking 20 years ago - Lipid panel is fairly normal w/ slightly low HDL level Persistent Hypokalemia - K 2.9-->3.4-->3.2 - 2/2 NPO status and now inadequate intake - Replete and monitor Hypomagnesemia - Mg is 1.4 - 2/2 inadequate intake - Replete and monitor Intentional Weight Loss on Ketogenic Diet - Advised to take it easy Resolved: S/p Dehydration Chronic: HTN HLD, low HDL level, recommend to go up on his home dose statin on discharge COPD w/ Hx/o Fibrosis and Smoking [id number] on CPAP, continue CPAP Depression Plan: He is clinically improving Advance diet as tolerated to non-greasy/nonfatty/dairy meal Routine AM labs DVT/GI prophylaxis Ambulate as tolerated Discontinue CIWAA, LA and PPI Possible d/c in AM Spoke to and daughter at bedside with his permission. Updated them about his morning labs, clinical progress, etiology of his acute pancreatitis and discharge care plan.
[2018-06-16] MEDS ORDERED: Lactulose Soln 10 GM/15 ML 30 ML UD Cup PO SCH (18:00)
[2018-06-16] MEDS ORDERED: Acetaminophen/Butalbital/Caffeine 325-50-40 MG Tab PO PRN (18:30)
[2018-06-16] MEDS ORDERED: Temazepam 7.5 MG Cap PO PRN (18:35)
[2018-06-16] MEDS ORDERED: diphenhydrAMINE 50 MG/ML SDV IVPUSH ONE (19:58)
[2018-06-16] MEDS ORDERED: Simvastatin 10 MG Tab PO SCH (21:00)
[2018-06-16] MEDS: Famotidine 20 MG/2 ML SDV IVPUSH SCH (21:40)
[2018-06-17] MEDS: Ketorolac 15 MG/ML SDV IVPUSH SCH ×3 (03:29→11:19)
[2018-06-17] MEDS: OLODATEROL HCL INH SCH (05:58)
[2018-06-17] MEDS: TIOTROPIUM BR INH SCH (05:58)
[2018-06-17] MEDS: Famotidine 20 MG/2 ML SDV IVPUSH SCH (08:16)
[2018-06-17] MEDS: buPROPion 150 MG Tab.ER PO SCH (08:16)
[2018-06-17 12:12] VITALS: BP 114/72
--- NOTE | 2018-06-17 12:38 | PCM.DCSUM1 ---
Discharge Summary - Hospital Course Free Text/Narrative:: Patient was primarily admitted for acute pancreatitis felt to be secondary to rapid intentional weight loss from ketogenic diet. All basic work up to include abdominal ultrasound and ct scan revealed no obvious abnormal findings. His lipid panel although obtained a day prior to his discharge was fairly insignificant. He was however on monosulfamyl diuretic which can cause pancreatitis, but we strongly believed this did not contribute or cause it since he had been on this medication for quite sometime now. On presentation to the hospital, he was found with a lipase level of over 18K with slightly elevated liver enzymes. But with conservative management, his labs resolved and he responded well to the aforementioned treatment. His hospital course was uncomplicated but he did have electrolytes abnormality due to being his npo and inadequate intake. However, we were quick to resolve it. And once medically stable, he was then sent home with no new medications. Patient was advised to take it easy with his weight loss diet and encouraged to incorporate physical activity into his regimen. He was further advised to comply with discharge instructions and to follow up with PCP in 1 week. And most importantly, he was advised to come back or seek immediate care should his symptoms persist or get worse. The patient expressed understanding and in agreement with the plans as discussed above. All questions and concerns were answered. On the day of discharge, his PCP, Yessi Arthur NP, was called and updated regarding his discharge care plan. HPI Initial Comments: This is a 62 yo white male with past medical hx/o HTN, HLD, COPD, Hx/o Pulmonary Fibrosis, WOJCIECH on CPAP, Depression and Significant intentional weight loss of almost 20lbs vis ketogenic diet who comes in with complaints for generalized abdominal pain associated with chills and was diagnosed with acute pancreatitis. Diagnosis: Stroke: No - Discharge Data Discharge Date: 06/17/18 Discharge Disposition: Home, Self-Care 01 Condition: Good - Discharge Diagnosis/Problem(s) (1) Pancreatitis, acute SNOMED Code(s): 529330808 ICD Code: K85.90 - ACUTE PANCREATITIS WITHOUT NECROSIS OR INFECTION, UNSP Status: Acute Qualifiers: Pancreatitis type: other Acute pancreatitis complication: unspecified Qualified Code(s): K85.80 - Other acute pancreatitis without necrosis or infection (2) Hypokalemia SNOMED Code(s): 99371163 ICD Code: E87.6 - HYPOKALEMIA Status: Resolved (3) Hypomagnesemia SNOMED Code(s): 689537709 ICD Code: E83.42 - HYPOMAGNESEMIA Status: Resolved (4) Abnormal intentional weight loss SNOMED Code(s): 639387201 ICD Code: R63.4 - ABNORMAL WEIGHT LOSS Status: Acute (5) Dehydration SNOMED Code(s): 76781274 ICD Code: E86.0 - DEHYDRATION Status: Resolved (6) Hyperlipidemia SNOMED Code(s): 21167727 ICD Code: E78.5 - HYPERLIPIDEMIA, UNSPECIFIED Status: Chronic Qualifiers: Hyperlipidemia type: mixed hyperlipidemia Qualified Code(s): E78.2 - Mixed hyperlipidemia - Patient Summary/Data Operative Procedure(s) Performed: None Complications: None Consults: None Labs Pending at D/C: None Recommended Follow-up Testing/Procedures: None Planned Operative Procedure(s) after DC: None - Patient Instructions Diet: Heart Healthy Diet Activity: As Tolerated Driving: May Drive Today Showering/Bathing: May Shower Notify Provider of: Fever, Nausea and/or Vomiting Other/Special Instructions: - Please resume all home medications and routine home activities as tolerated. - Recommend follow up CMP and Mg in 1 week through your PCP's office. - Take it easy on agressive weight loss. - Integrate physical activity to optimize effective weight loss. - Absolutely avoid alcohol, greasy/fatty and dairy products for 1 week! - Call or follow up with your PCP for any questions or concerns after discharge. - Follow up with your PCP in 1 week with repeat labs as above. - Come back or seek immediate care should your symptoms persist or get worse - Discharge Plan *PRESCRIPTION DRUG MONITORING PROGRAM REVIEWED*: Not Applicable *COPY OF PRESCRIPTION DRUG MONITORING REPORT IN PATIENT RUI: Not Applicable Prescriptions/Med Rec: Pravastatin Sodium 20 mg PO DAILY #60 tablet Home Medications: Home Meds Aspirin [Halfprin] 81 mg PO DAILY 06/14/18 [History] Chlorthalidone 25 mg PO DAILY 06/14/18 [History] Tiotropium Br/Olodaterol HCl [Stiolto Respimat Inhal Cos Cob] 2 puff INH DAILY@ 0600 06/14/18 [History] buPROPion HCl [Wellbutrin Xl] 150 mg PO DAILY 06/14/18 [History] Pravastatin Sodium 20 mg PO DAILY #60 tablet 06/17/18 [Rx] Patient Handouts: Acute Pancreatitis, [id number], Hypomagnesemia, Hypokalemia , Dehydration, Adult, [id number], Fat and Cholesterol Restricted Diet, Easy-to -Read, Form - Daily Weight Record - Discharge Summary/Plan Comment DC Time >30 min.: No Discharge Summary/Plan Comment: Discharge to Home - General Info Date of Service: 06/17/18 Admission Dx/Problem (Free Text: Admission Diagnosis/Problem Admission Diagnosis/Problem Pancreatitis Subjective Update: Follow Up Functional Status: Reports: Pain Controlled, Tolerating Diet, Ambulating, Urinating. Denies: New Symptoms - Review of Systems General: Denies: Fever, Weakness, Fatigue, Chills HEENT: Reports: No Symptoms. Denies: Visual Changes Cardiovascular: Denies: Chest Pain, Dyspnea on Exertion, Lightheadedness Gastrointestinal: Reports: Flatus. Denies: Abdominal Pain, Constipation, Decreased Appetite, Diarrhea, Difficulty Swallowing, Hematochezia, Nausea Genitourinary: Reports: No Symptoms Musculoskeletal: Reports: No Symptoms Skin: Denies: Cyanosis, Mottled, Pallor, Diaphoresis, Bruising, Other Neurological: Denies: Confusion, Headache, Numbness, Difficulty Walking, Weakness, Gait Disturbance Psychiatric: Denies: Depression, Anxiety, Agitation, Hallucinations Systems Review Comment: No overnight or acute issues. He rested well last night and tolerated regular meal x2 w/o any issues. His WBC has resolved. His lipase is now back wnl. He has no complaints and he feels pretty good. - Patient Data Vitals - Most Recent: Last Vital Signs Temp 36.7 C 06/17/18 08:16 Pulse 72 06/17/18 08:16 Resp 20 06/17/18 08:16 BP 114/72 06/17/18 08:16 Pulse Ox 94 L 06/17/18 08:16 Weight - Most Recent: 88.314 kg I&O - Last 24 hours: Intake & Output 06/16/18 06/17/18 06/17/18 22:59 06:59 14:59 Intake Total 2993 800 420 Output Total 1350 2900 Balance 1643 -2100 420 Lab Results - Last 24 hrs: Laboratory Results - last 24 hr 06/17/18 06/17/18 Range/Units 06:25 06:25 WBC 9.04 (4.23-9.07) K/mm3 RBC 4.39 L (4.63-6.08) M/mm3 Hgb 13.3 L (13.7-17.5) gm/L Hct 38.9 L (40.1-51.0) % MCV 88.6 (79.0-92.2) fl MCH 30.3 (25.7-32.2) pg MCHC 34.2 (32.2-35.5) g/dl RDW Std Deviation 41.5 (35.1-43.9) fL Plt Count 112 L (163-337) K/mm3 Neut % (Auto) 73.2 H (34.0-67.9) % Lymph % (Auto) 13.1 L (21.8-53.1) % Oliver % (Auto) 10.1 (5.3-12.2) % Eos % (Auto) 3.1 (0.8-7.0) Baso % (Auto) 0.4 (0.1-1.2) % Neut # (Auto) 6.62 H (1.78-5.38) K/mm3 Lymph # (Auto) 1.18 L (1.32-3.57) K/mm3 Oliver # (Auto) 0.91 H (0.30-0.82) K/mm3 Eos # (Auto) 0.28 (0.04-0.54) K/mm3 Baso # (Auto) 0.04 (0.01-0.08) K/mm3 Manual Slide Review Abnormal smear Sodium 140 (136-145) mEq/L Potassium 3.5 (3.5-5.1) mEq/L Chloride 105 (98-107) mEq/L Carbon Dioxide 25 (21-32) mEq/L Anion Gap 13.5 (5-15) BUN 10 (7-18) mg/dL Creatinine 1.1 (0.7-1.3) mg/dL Est Cr Clr Drug Dosing 69.09 mL/min Estimated GFR (MDRD) > 60 (>60) mL/min BUN/Creatinine Ratio 9.1 L (14-18) Glucose 85 (74-106) mg/dL Calcium 8.8 (8.5-10.1) mg/dL Magnesium 2.1 (1.8-2.4) mg/dl C-Reactive Protein 19.4 H* (<1.0) mg/dL Lipase 277 (73-393) U/L Med Orders - Current: Current Medications Acetaminophen/Butalbital/Caffeine (Fioricet 325-50-40 Mg) 1 tab PO Q6H PRN PRN Reason: Headache Bupropion HCl (Wellbutrin Xl) 150 mg PO DAILY [facility] Last Admin: 06/17/18 08:16 Dose: 150 mg Famotidine (Pepcid) 20 mg PO BID [facility] Hydromorphone HCl (Dilaudid) 1 mg IVPUSH Q2H PRN PRN Reason: Pain Last Admin: 06/16/18 05:49 Dose: 1 mg Ondansetron HCl (Zofran) 4 mg IVPUSH Q6H PRN PRN Reason: Nausea Tiotropium Br/Olodaterol Hcl [ Stiolto Respimat] Ptom 0 each INH DAILY@0600 [facility] Last Admin: 06/17/18 05:58 Dose: 2 each Simvastatin (Zocor) 5 mg PO BEDTIME [facility] Last Admin: 06/16/18 21:40 Dose: 5 mg Sodium Chloride (Saline Flush) 10 ml FLUSH ASDIRECTED PRN PRN Reason: Keep Vein Open Last Admin: 06/14/18 21:57 Dose: 10 ml Temazepam (Restoril) 7.5 mg PO BEDTIME PRN PRN Reason: Sleep Discontinued Medications Diatrizoate Meglum/Diatrizoate Sod (Gastrografin 37%) 90 ml PO ONETIME ONE Stop: 06/14/18 21:25 Last Admin: 06/14/18 21:56 Dose: 90 ml Diphenhydramine HCl (Benadryl) 25 mg IVPUSH ONETIME ONE Stop: 06/16/18 19:59 Last Admin: 06/16/18 21:40 Dose: Not Given Famotidine (Pepcid) 20 mg IVPUSH BID [facility] Stop: 06/17/18 09:01 Last Admin: 06/17/18 08:16 Dose: 20 mg Hydromorphone HCl (Dilaudid) 1 mg IVPUSH ONETIME ONE Stop: 06/14/18 20:00 Last Admin: 06/14/18 20:14 Dose: 1 mg Hydromorphone HCl (Dilaudid) 1 mg IVPUSH ONETIME ONE Stop: 06/14/18 22:03 Last Admin: 06/14/18 22:10 Dose: 1 mg Hydromorphone HCl (Dilaudid) 1 mg IVPUSH ONETIME ONE Stop: 06/15/18 01:06 Last Admin: 06/15/18 01:09 Dose: 1 mg Hydromorphone HCl (Dilaudid) Confirm Administered Dose 1 mg .ROUTE .STK-MED ONE Stop: 06/15/18 01:46 Last Admin: 06/15/18 02:00 Dose: Not Given Hydromorphone HCl (Dilaudid) 1 mg IVPUSH ONETIME ONE Stop: 06/15/18 01:59 Last Admin: 06/15/18 01:45 Dose: 1 mg Sodium Chloride (Normal Saline) 1,000 mls @ 1,000 mls/hr IV .BOLUS STA Stop: 06/14/18 20:57 Last Admin: 06/14/18 20:14 Dose: 1,000 mls/hr Sodium Chloride (Normal Saline) 1,000 mls @ 150 mls/hr IV ASDIRECTED [facility] Last Admin: 06/14/18 22:41 Dose: 150 mls/hr Potassium Chloride/Sodium Chloride (Normal Saline With 20 Meq Kcl) 1,000 mls @ 125 mls/hr IV ASDIRECTED [facility] Last Admin: 06/16/18 05:43 Dose: 125 mls/hr Potassium Chloride 10 meq/ (Premix) 100 mls @ 100 mls/hr IV Q1H [facility] Stop: 06/15/18 05:59 Last Admin: 06/15/18 05:40 Dose: Not Given Potassium Chloride/Sodium Chloride (Normal Saline With 40 Meq Kcl) 1,000 mls @ 125 mls/hr IV ASDIRECTED [facility] Last Admin: 06/16/18 09:57 Dose: 125 mls/hr Potassium Chloride 10 meq/ (Premix) 100 mls @ 50 mls/hr IV Q2H [facility] Stop: 06/16/18 12:14 Last Admin: 06/16/18 12:00 Dose: 50 mls/hr Magnesium Sulfate 4 gm/ Premix 50 mls @ 12.5 mls/hr IV ONETIME ONE Stop: 06/16/18 12:04 Last Admin: 06/16/18 09:56 Dose: 12.5 mls/hr Iopamidol (Isovue-370 (76%)) 100 ml IV ONETIME ONE Stop: 06/14/18 21:25 Last Admin: 06/14/18 21:56 Dose: 100 ml Ketorolac Tromethamine (Toradol) 15 mg IVPUSH Q8H [facility] Stop: 06/17/18 10:01 Last Admin: 06/17/18 11:19 Dose: Not Given Lactulose (Cephulac) 20 gm PO BID [facility] Ondansetron HCl (Zofran) 4 mg IVPUSH ONETIME ONE Stop: 06/14/18 19:59 Last Admin: 06/14/18 20:14 Dose: 4 mg Pantoprazole Sodium (Protonix Iv) 40 mg IVPUSH Q12H [facility] Last Admin: 06/16/18 05:43 Dose: 40 mg - Exam General: Reports: Alert, Oriented, Cooperative HEENT: Reports: Pupils Equal, Pupils Reactive, EOMI, Mucous Membr. Moist/[place]: Reports: Supple Lungs: Reports: Clear to Auscultation, Normal Respiratory Effort Cardiovascular: Reports: Regular Rate, Regular Rhythm GI/Abdominal Exam: Normal Bowel Sounds, Soft, Non-Tender, No Organomegaly, No Distention, No Abnormal Bruit (Male) Exam: Deferred Rectal (Males) Exam: Deferred Back Exam: Reports: Normal Inspection, Full Range of Motion Extremities: Normal Inspection, Normal Range of Motion, Non-Tender, No Pedal Edema, Normal Capillary Refill Skin: Reports: Warm, Dry, Intact Neurological: Reports: No New Focal Deficit Psy/Mental Status: Reports: Alert, Normal Affect, Normal Mood
[2018-06-17] MEDS ORDERED: Famotidine 20 MG Tab PO SCH (21:00)
== END 2018-06-17 14:42 | disposition home or self-care (01) | DRG 282 ==
LOC: JD.ED 19:17 → JD.MS 06-15 00:40
PROVIDERS: ADMIT Internal Medicine Cardiovascular Disease; ATTEND Internal Medicine Cardiovascular Disease
DX: K85.80 Other acute pancreatitis without necrosis or infection (principal); J84.10 Pulmonary fibrosis, unspecified; E83.42 Hypomagnesemia; I10 Essential (primary) hypertension; J44.9 Chronic obstructive pulmonary disease, unspecified; G47.33 Obstructive sleep apnea (adult) (pediatric); F32.9 Major depressive disorder, single episode, unspecified; E87.6 Hypokalemia; E86.0 Dehydration; R63.4 Abnormal weight loss; E78.2 Mixed hyperlipidemia; E78.00 Pure hypercholesterolemia, unspecified; H54.7 Unspecified visual loss; Z87.891 Personal history of nicotine dependence; Z79.899 Other long term (current) drug therapy; Z79.82 Long term (current) use of aspirin
CPT/HCPCS: 36415; 74177; 74177-26; 76705; 76705-26; 80048; 80053; 80061; 81001; 83605; 83690; 83735; 85025; 86140; 94640; 94760; 96361; 96374; 96375; 96376; 99284; 99285-25; A9270-GY; C9113; G0480; J1170; J1885; J2405; J3475; J3480; J3490; J7040; Q9963; Q9967

== ENCOUNTER 2020-12-18 07:46 | Emergency (ER) | payer BC ==
[2020-12-18 08:09] VITALS: BP 157/96
[2020-12-18] MEDS ORDERED: Sodium Chloride 0.9% 10 ML Syringe FLUSH PRN (08:10)
[2020-12-18] MEDS ORDERED: Ketorolac 30 MG/ML SDV IVPUSH ONE (09:11)
[2020-12-18] MEDS ORDERED: Sodium Chloride 0.9% 1,000 ML IV STA (09:11)
[2020-12-18] MEDS ORDERED: methylPREDNISolone Sodium Succinate 125 MG/2 ML SDV IVPUSH PRN (09:11)
[2020-12-18] MEDS ORDERED: Ondansetron 4 MG/2 ML SDV IVPUSH ONE (09:11)
[2020-12-18] MEDS ORDERED: Famotidine 20 MG/2 ML SDV IVPUSH PRN (09:11)
[2020-12-18] MEDS ORDERED: EPINEPHrine 1 MG/ML SDV IM PRN (09:11)
[2020-12-18] MEDS ORDERED: diphenhydrAMINE 50 MG/ML SDV IVPUSH PRN (09:11)
[2020-12-18] MEDS ORDERED: Dexamethasone 4 MG Tab PO ONE (09:12)
[2020-12-18] MEDS ORDERED: Sodium Chloride 0.9% 10 ML Syringe FLUSH SCH (09:15)
--- NOTE | 2020-12-18 09:15 | EDM.PDOC ---
ED HPI GENERAL MEDICAL PROBLEM - General Chief Complaint: Gastrointestinal Problem Stated Complaint: COVID+ Time Seen by Provider: 12/18/20 08:10 Source of Information: Reports: Patient, RN Notes Reviewed History Limitations: Reports: No Limitations - History of Present Illness INITIAL COMMENTS - FREE TEXT/NARRATIVE: Patient is a 65-year-old male presenting to the emergency department with complaints of nausea, vomiting, diarrhea, body aches, and back pain. He reports he developed Covid symptoms on December 12 and tested positive on December 13. He reports that since then he has been having vomiting and diarrhea. Is unable to keep down food or liquids. Last vomited last evening. Patient reports a history of COPD but denies any significant cough or shortness of breath. He denies any chest pain. Reports that he does have chronic back pain though it is worse because he has not been able to take ibuprofen due to his nausea and vomiting. He was not vaccinated for Covid. He is requesting to receive monoclonal antibody treatment. - Related Data Allergies Allergy/AdvReac Type Severity Reaction Status Date / Time No Known Allergies Allergy Verified 06/15/18 03:08 Home Meds: Home Meds Aspirin [Halfprin] 81 mg PO DAILY 06/14/18 [History] Chlorthalidone 25 mg PO DAILY 06/14/18 [History] Tiotropium Br/Olodaterol HCl [Stiolto Respimat Inhal [place]] 2 puff INH DAILY@0600 06/14/18 [History] buPROPion HCL [Wellbutrin Xl] 150 mg PO DAILY 06/14/18 [History] Pravastatin Sodium 20 mg PO DAILY #60 tablet 06/17/18 [Rx] Hydrocodone/Acetaminophen [Hydrocodone-Acetamin 5-325 mg] 1 each PO Q4H PRN #12 tablet 12/18/20 [Rx] Potassium Chloride 20 meq PO BID #7 tab.er.prt 12/18/20 [Rx] dexAMETHasone [Decadron] 6 mg PO DAILY 4 Days #4 tablet 12/18/20 [Rx] Past Medical History HEENT History: Reports: Impaired Vision Cardiovascular History: Reports: High Cholesterol Respiratory History: Reports: COPD, Pulmonary Fibrosis, Sleep Apnea Psychiatric History: Reports: Depression - Infectious Disease History Infectious Disease History: Reports: Novel Coronavirus - Past Surgical History GI Surgical History: Reports: Appendectomy Musculoskeletal Surgical History: Reports: Shoulder Surgery Social & Family History - Family History Family Medical History: No Pertinent Family History - Tobacco Use Tobacco Use Status *Q: Current Every Day Tobacco User Years of Tobacco use: 40 Packs/Tins Daily: 0.5 - Caffeine Use Caffeine Use: Reports: Coffee - Recreational Drug Use Recreational Drug Use: No ED ROS GENERAL - Review of Systems Review Of Systems: See Below Constitutional: Reports: Fever, Chills, Weakness, Fatigue HEENT: Reports: No Symptoms Respiratory: Reports: No Symptoms. Denies: Shortness of Breath, Cough Cardiovascular: Reports: No Symptoms. Denies: Chest Pain, Lightheadedness, Palpitations, Syncope Endocrine: Reports: No Symptoms GI/Abdominal: Reports: Abdominal Pain ("raw" ), Diarrhea, Nausea, Vomiting : Reports: No Symptoms Musculoskeletal: Reports: Back Pain, Other (generalized body aches) Skin: Reports: No Symptoms Neurological: Reports: No Symptoms Psychiatric: Reports: No Symptoms Hematologic/Lymphatic: Reports: No Symptoms Immunologic: Reports: No Symptoms ED EXAM, GENERAL - Physical Exam Exam: See Below Exam Limited By: No Limitations General Appearance: Alert, WD/WN, No Apparent Distress Respiratory/Chest: No Respiratory Distress, Lungs Clear, No Accessory Muscle Use, Chest Non-Tender, Decreased Breath Sounds Cardiovascular: Normal Peripheral Pulses, Regular Rate, Rhythm, No Edema, No Gallop, No JVD, No Murmur, No Rub GI/Abdominal: Normal Bowel Sounds, Soft, Non-Tender, No Organomegaly, No Distention, No Abnormal Bruit, No Mass Neurological: Alert, Oriented, CN II-XII Intact, Normal Cognition, Normal Gait, Normal Reflexes, No Motor/Sensory Deficits Psychiatric: Normal Affect, Normal Mood Skin Exam: Warm, Dry, Intact, Normal Color, No Rash #1 Interpretation EKG Date: 12/18/20 Time: 08:25 Rhythm: NSR Rate (Beats/Min): 90 [place]: Normal P-Wave: Present QRS: Normal ST-T: Depressed (minimal leads AVL-V6) QT: Normal Course - Vital Signs Last Recorded V/S: Last Vital Signs Temp 98.7 F 12/18/20 08:06 Pulse 80 12/18/20 15:45 Resp 20 12/18/20 15:45 BP 157/96 H 12/18/20 08:06 Pulse Ox 87 L 12/18/20 15:45 - Orders/Labs/Meds Orders: Active Orders 24 hr Category Date Time Status Peripheral IV Insertion Adult [OM.PC] Stat Oth 12/18/20 08:10 Ordered Labs: Laboratory Tests 12/18/20 12/18/20 12/18/20 Range/Units 08:15 08:15 08:15 WBC 5.26 (4.23-9.07) K/mm3 RBC 5.18 (4.63-6.08) M/mm3 Hgb 15.7 D (13.7-17.5) gm/dl Hct 45.2 (40.1-51.0) % MCV 87.3 (79.0-92.2) fl MCH 30.3 (25.7-32.2) pg MCHC 34.7 (32.2-35.5) g/dl RDW Std Deviation 42.8 (35.1-43.9) fL Plt Count 117 L (163-337) K/mm3 MPV 12.6 H (9.4-12.3) fl Neut % (Auto) 78.9 H (34.0-67.9) % Lymph % (Auto) 9.1 L (21.8-53.1) % [place] % (Auto) 11.4 (5.3-12.2) % Eos % (Auto) 0 L (0.8-7.0) Baso % (Auto) 0.2 (0.1-1.2) % Neut # (Auto) 4.15 (1.78-5.38) K/mm3 Lymph # (Auto) 0.48 L (1.32-3.57) K/mm3 [place] # (Auto) 0.60 (0.30-0.82) K/mm3 Eos # (Auto) 0.00 L (0.04-0.54) K/mm3 Baso # (Auto) 0.01 (0.01-0.08) K/mm3 D-Dimer, Quantitative 0.52 H (0.19-0.50) mg/L Sodium 133 L (136-145) mEq/L Potassium 2.4 L* (3.5-5.1) mEq/L Chloride 92 L D (98-107) mEq/L Carbon Dioxide 31 (21-32) mEq/L Anion Gap 12.4 (5-15) BUN 18 (7-18) mg/dL Creatinine 1.3 (0.7-1.3) mg/dL Est Cr Clr Drug Dosing 56.27 mL/min Estimated GFR (MDRD) 56 (>60) mL/min BUN/Creatinine Ratio 13.8 L (14-18) Glucose 105 H (70-99) mg/dL Calcium 8.5 (8.5-10.1) mg/dL Total Bilirubin 0.8 (0.2-1.0) mg/dL AST 47 H (15-37) U/L ALT 46 (16-63) U/L Alkaline Phosphatase 40 L (46-116) U/L Troponin I 0.069 H* (0.00-0.056) ng/mL C-Reactive Protein 5.6 H* (<1.0) mg/dL NT-Pro-B Natriuret Pep (0-125) pg/mL Total Protein 7.1 (6.4-8.2) g/dl Albumin 3.6 (3.4-5.0) g/dl Globulin 3.5 gm/dL Albumin/Globulin Ratio 1.0 (1-2) 12/18/20 12/18/20 12/18/20 Range/Units 08:15 12:10 14:05 WBC (4.23-9.07) K/mm3 RBC (4.63-6.08) M/mm3 Hgb (13.7-17.5) gm/dl Hct (40.1-51.0) % MCV (79.0-92.2) fl MCH (25.7-32.2) pg MCHC (32.2-35.5) g/dl RDW Std Deviation (35.1-43.9) fL Plt Count (163-337) K/mm3 MPV (9.4-12.3) fl Neut % (Auto) (34.0-67.9) % Lymph % (Auto) (21.8-53.1) % [place] % (Auto) (5.3-12.2) % Eos % (Auto) (0.8-7.0) Baso % (Auto) (0.1-1.2) % Neut # (Auto) (1.78-5.38) K/mm3 Lymph # (Auto) (1.32-3.57) K/mm3 [place] # (Auto) (0.30-0.82) K/mm3 Eos # (Auto) (0.04-0.54) K/mm3 Baso # (Auto) (0.01-0.08) K/mm3 D-Dimer, Quantitative (0.19-0.50) mg/L Sodium (136-145) mEq/L Potassium (3.5-5.1) mEq/L Chloride (98-107) mEq/L Carbon Dioxide (21-32) mEq/L Anion Gap (5-15) BUN (7-18) mg/dL Creatinine (0.7-1.3) mg/dL Est Cr Clr Drug Dosing mL/min Estimated GFR (MDRD) (>60) mL/min BUN/Creatinine Ratio (14-18) Glucose (70-99) mg/dL Calcium (8.5-10.1) mg/dL Total Bilirubin (0.2-1.0) mg/dL AST (15-37) U/L ALT (16-63) U/L Alkaline Phosphatase (46-116) U/L Troponin I 0.063 H* 0.054 (0.00-0.056) ng/mL C-Reactive Protein (<1.0) mg/dL NT-Pro-B Natriuret Pep 94 (0-125) pg/mL Total Protein (6.4-8.2) g/dl Albumin (3.4-5.0) g/dl Globulin gm/dL Albumin/Globulin Ratio (1-2) Meds: Medications Discontinued Medications Generic Name Dose Route Start Last Admin Trade Name Freq PRN Reason Stop Dose Admin Dexamethasone 6 mg 12/18/20 09:12 12/18/20 09:54 Dexamethasone 4 Mg Tab PO 12/18/20 09:13 6 mg ONETIME ONE Administration Diphenhydramine HCl 50 mg 12/18/20 09:11 Diphenhydramine 50 Mg/Ml Sdv IVPUSH ONETIME PRN hypersensitivity reaction Epinephrine HCl 0.3 mg 12/18/20 09:11 Epinephrine 1 Mg/Ml Sdv IM ONETIME PRN hypersensitivity reaction Famotidine 20 mg 12/18/20 09:11 Famotidine 20 Mg/2 Ml Sdv IVPUSH ONETIME PRN hypersensitivity reaction Famotidine 20 mg 12/18/20 14:25 12/18/20 15:21 Famotidine 20 Mg/2 Ml Sdv IVPUSH 12/18/20 14:26 20 mg ONETIME ONE Administration Sodium Chloride 1,000 mls @ 150 mls/hr 12/18/20 09:11 12/18/20 09:53 Normal Saline IV 12/18/20 15:50 150 mls/hr NOW STA Administration CASIRIVIMAB/IMDEVIMAB 10 ml/ 110 mls @ 220 mls/hr 12/18/20 09:11 12/18/20 09:54 Sodium Chloride IV 12/18/20 09:40 Not Given ONETIME ONE Potassium Chloride 10 meq/ 100 mls @ 100 mls/hr 12/18/20 09:30 12/18/20 13:44 Premix IV 12/18/20 13:29 100 mls/hr Q1H ADINA Administration Bamlanivimab 700 mg/ 160 mls @ 310 mls/hr 12/18/20 09:45 12/18/20 09:53 Etesevimab 1,400 mg/ Sodium IV 12/18/20 10:15 310 mls/hr Chloride ONETIME ONE Administration Ketorolac Tromethamine 30 mg 12/18/20 09:11 12/18/20 09:53 Ketorolac 30 Mg/Ml Sdv IVPUSH 12/18/20 09:12 30 mg ONETIME ONE Administration Methylprednisolone Sodium Succinate 125 mg 12/18/20 09:11 Methylprednisolone Sodium Succinate 125 Mg/2 Ml Sdv IVPUSH ONETIME PRN hypersensitivity reaction Ondansetron HCl 4 mg 12/18/20 09:11 12/18/20 09:53 Ondansetron 4 Mg/2 Ml Sdv IVPUSH 12/18/20 09:12 4 mg ONETIME ONE Administration Potassium Chloride 40 meq 12/18/20 10:44 12/18/20 13:43 Potassium Chloride 20 Meq Tab.Er PO 12/18/20 10:45 40 meq ONETIME ONE Administration Potassium Chloride Confirm 12/18/20 13:40 12/18/20 13:44 Potassium Chloride 20 Meq Tab.Er Administered 12/18/20 13:41 Not Given Dose 40 meq .ROUTE .STK-MED ONE Sodium Chloride 10 ml 12/18/20 08:10 12/18/20 08:21 Sodium Chloride 0.9% 10 Ml Syringe FLUSH 10 ml ASDIRECTED PRN Administration Keep Vein Open Sodium Chloride 30 ml 12/18/20 09:15 Sodium Chloride 0.9% 10 Ml Syringe FLUSH ASDIRECTED ADINA - Re-Assessments/Exams Free Text/Narrative Re-Assessment/Exam: Patient is a 65-year-old male presenting to the emergency department with complaints of body aches, nausea, vomiting, diarrhea with a known diagnosis of Covid. He has COPD but denies any significant cough or shortness of breath. Oxygen saturation on arrival was 93%. At rest he is saturating between 88 and 92%. He complains of body aches, particularly back pain, as he has not been able to take ibuprofen due to the vomiting. He is not having any chest pain. Exam is unremarkable. Lung sounds are clear. I have ordered blood work, EKG, chest x-ray, IV fluids, Zofran, Toradol, dexamethasone, and Regeneron. 12/18/20 09:31 Hematology significant for D-dimer minimally elevated 0.52 which when converted for age is normal. sodium 133, potassium 2.4, chloride 92, AST 47, troponin 0 0.069, CRP 5.6. EKG shows minimal ST depression V aVL through V6 as well as Q waves in lead III. Otherwise unremarkable. Patient denies having chest pain at any point. I have ordered 40 mEq of IV potassium. Once patient's nausea has improved, I will also give him oral potassium. We'll recheck a troponin in 3 hours and I will consult cardiology at that time. 12/18/20 1030 Patient oxygen saturation desaturates into the low 80s when sleeping. Maintaining low 90s while awake. Patient reports he does have sleep apnea and wears a CPAP at home. Oxygen has been applied at 2 L by nasal cannula as patient has been sleeping. 12/18/20 13:27 Repeat troponin had come down to 0.063. Case was discussed with wedding decorator at [place], Dr. Kidd. He feels that elevation in troponin is due to demand ischemia, however recommends that we we check one more troponin to ensure it continues to trend down prior to discharging the patient. We will plan to repeat troponin at 1430 12/18/20 15:45 Repeat troponin is normal at 0.054. Patient has completed his potassium infusions as well as his antibody infusion without adverse effect. Patient will be discharged home with home oxygen and recommendation that he wear it if his oxygen saturations are below 90%. We have seen him as low as 87% on room air. I will also send prescription for dexamethasone, hydrocodone with Tylenol for pain, and potassium. Recommend that he take Pepcid daily as well for his upset stomach. He should follow-up with Dr. Asher on Thursday to have his potassium levels rechecked. Discussed return precautions. Discharge instructions as doc umented. Departure - Departure Time of Disposition: 15:46 Disposition: Home, Self-Care 01 Condition: Good Clinical Impression: COVID - Discharge Information *PRESCRIPTION DRUG MONITORING PROGRAM REVIEWED*: Yes *COPY OF PRESCRIPTION DRUG MONITORING REPORT IN PATIENT RUI: No Prescriptions: dexAMETHasone [Decadron] 6 mg PO DAILY 4 Days #4 tablet Hydrocodone/Acetaminophen [Hydrocodone-Acetamin 5-325 mg] 1 each PO Q4H PRN #12 tablet PRN Reason: Pain Potassium Chloride 20 meq PO BID #7 tab.er.prt Instructions: COVID-19 Referrals: Rohini Davila MD [Primary Care Provider] - Forms: ED Department Discharge Additional Instructions: You were seen in the emergency department today for evaluation of your Covid symptoms. Work-up included blood work, EKG, chest x-ray. During your work-up, you were found to have slightly elevated cardiac enzymes, however, these had returned to normal by the time of your discharge. Your potassium was also found to be low. You received potassion supplementation in the ER and have also been started on a potassium supplement for treatment of this. You have been started on dexamethasone which is a steroid. Your first dose was given in ER. You also received an infusion of monoclonal antibodies in the emergency department. Prescriptions have been sent for the dexamethasone, hydrocodone with Tylenol for your pain, and potassium. You have also been provided with home oxygen. Recommend that you monitor your oxygen saturations. If you are not maintaining a saturation greater than 91% on room air, recommend wearing the oxygen at 1 to 2 L as needed to keep your saturations above this rosemarie. Follow-up with your primary care provider on Thursday to have your blood work rechecked. Take Pepcid 20 mg daily to help with your raw stomach. This may be purchased [id number]. Return to ER for any new or worsening symptoms of concern. Sepsis Event Note (ED) - Evaluation Sepsis Screening Result: No Definite Risk - My Orders Last 24 Hours: My Active Orders 12/18/20 08:10 Peripheral IV Insertion Adult [OM.PC] Stat - Assessment/Plan Last 24 Hours: My Active Orders 12/18/20 08:10 Peripheral IV Insertion Adult [OM.PC] Stat
--- NOTE | 2020-12-18 09:24 | CR ---
Chest: Portable view of the chest was obtained. Comparison: Prior chest x-ray of 12/23/12. Elevated right hemidiaphragm is seen versus subpulmonic pleural effusion. Minimal atelectasis is seen within the right lung base. Lungs otherwise are grossly clear. Old healed right clavicle fracture is noted. No acute bony abnormality is appreciated. Impression: 1. Elevated right hemidiaphragm versus subpulmonic pleural effusion. 2. Slight atelectasis within the right lung base. 3. Nothing acute is otherwise seen on portable chest x-ray. Diagnostic code #3
[2020-12-18] MEDS ORDERED: Bamlanivimab 700 MG, ETESEVIMAB 1,400 MG in Sodium Chloride 0.9% 100 ML IV ONE (09:45)
[2020-12-18] MEDS: Potassium Chloride 10 MEQ in Premix Bag 1 BAG IV SCH ×4 (10:41→13:44)
[2020-12-18] MEDS ORDERED: Potassium Chloride 20 MEQ Tab.ER PO ONE (10:44)
[2020-12-18] MEDS ORDERED: Potassium Chloride 20 MEQ Tab.ER ONE (13:40)
[2020-12-18] MEDS ORDERED: Famotidine 20 MG/2 ML SDV IVPUSH ONE (14:25)
[2020-12-18 16:22] VITALS: PULSE 80
== END 2020-12-18 16:15 | disposition home or self-care (01) ==
LOC: JD.ED 07:46
DX: U07.1 COVID-19 (principal); E78.00 Pure hypercholesterolemia, unspecified; J44.9 Chronic obstructive pulmonary disease, unspecified; F17.210 Nicotine dependence, cigarettes, uncomplicated; Z79.82 Long term (current) use of aspirin; Z79.899 Other long term (current) drug therapy; Z90.49 Acquired absence of other specified parts of digestive tract
CPT/HCPCS: 36415; 71045; 80053; 83880; 84484; 85025; 85379; 86140; 93005; 96365; 96366; 96375; 99284; A9270; J1885; J2405; J3480; J3490; J7030; J8540; M0245; Q0245

== ENCOUNTER 2021-12-27 09:11 | Emergency (ER) | payer BC ==
[2021-12-27] MEDS ORDERED: Sodium Chloride 0.9% 10 ML Syringe FLUSH PRN (10:23)
[2021-12-27] MEDS ORDERED: Ketorolac 30 MG/ML SDV IVPUSH ONE (10:23)
[2021-12-27] MEDS ORDERED: Ondansetron 4 MG/2 ML SDV IVPUSH ONE (10:23)
[2021-12-27] MEDS ORDERED: Lactated Ringers 1,000 ML IV ONE (10:23)
[2021-12-27] MEDS ORDERED: Potassium Chloride 10 MEQ in Premix Bag 1 BAG IV ONE (11:46)
[2021-12-27] MEDS ORDERED: Potassium Chloride 20 MEQ Tab.ER PO ONE (11:46)
[2021-12-27] MEDS ORDERED: EPINEPHrine 1 MG/ML SDV IM PRN (11:47)
[2021-12-27] MEDS ORDERED: diphenhydrAMINE 50 MG/ML SDV IVPUSH PRN (11:47)
[2021-12-27] MEDS ORDERED: methylPREDNISolone Sodium Succinate 125 MG/2 ML SDV IVPUSH PRN (11:47)
[2021-12-27] MEDS ORDERED: Famotidine 20 MG/2 ML SDV IVPUSH PRN (11:47)
[2021-12-27] MEDS ORDERED: Sodium Chloride 0.9% 10 ML Syringe FLUSH SCH (12:00)
[2021-12-27 14:34] VITALS: BP 132/90; PULSE 85
== END 2021-12-27 14:20 | disposition home or self-care (01) ==
LOC: JD.ED 09:11
DX: U07.1 COVID-19 (principal); E86.0 Dehydration; E87.6 Hypokalemia; E78.00 Pure hypercholesterolemia, unspecified; I10 Essential (primary) hypertension; J44.9 Chronic obstructive pulmonary disease, unspecified; Z79.82 Long term (current) use of aspirin; Z79.899 Other long term (current) drug therapy
CPT/HCPCS: 36415; 71045; 80053; 81001; 83735; 85025; 96361; 96365; 96375; 99285; A9270; J1885; J2405; J3480; J3490; J7120; M0222; Q0222; 99284

== ENCOUNTER 2023-05-31 12:47 | Emergency (ER) | payer BC ==
[2023-05-31 13:15] LABS: BASOPHILS ABSOLUTE AUTO 0.1 K/mm3 (0.0-0.2); EOSINOPHILS ABSOLUTE AUTO 0.3 K/mm3 (0.0-0.4); EOSINOPHILS PERCENT AUTO 3.5 % (0.0-6.0); HEMATOCRIT 48.2 % (42.0-52.0); HEMOGLOBIN 17.1 gm/dl (14.0-18.0); IMMATURE GRAN ABSOLUTE AUTO 0.06 K/mm3 (0.00-0.05); IMMATURE GRAN PERCENT AUTO 0.8 % (0.0-0.4); LYMPHOCYTES ABSOLUTE AUTO 1.4 K/mm3 (1.0-4.8); LYMPHOCYTES PERCENT AUTO 18.4 % (24.0-44.0); MEAN CORPUSCULAR HEMOGLOBIN 30.4 pg (28.0-32.0); MEAN CORPUSCULAR HGB CONC 35.5 g/dl (32.0-36.0); MEAN CORPUSCULAR VOLUME 85.8 fl (83.0-99.0); MEAN PLATELET VOLUME 12.1 fl (9.4-12.4); MONOCYTES ABSOLUTE AUTO 0.9 K/mm3 (0.0-0.8); NEUTROPHILS PERCENT AUTO 65.3 % (41.0-71.0); PLATELET COUNT,PLT 201 K/mm3 (150-400); RED BLOOD CELL COUNT 5.62 M/mm3 (4.52-5.90); WHITE BLOOD CELL COUNT,WBC 7.72 K/mm3 (3.9-11.3)
[2023-05-31] MEDS: Sodium Chloride 0.9% 10 ML Syringe FLUSH PRN (13:29)
[2023-05-31 13:33] LABS: INR 0.94; PROTHROMBIN TIME 10.1 SECONDS (9.7-12.0)
[2023-05-31 13:45] LABS: A/G RATIO 1.2 (1-2); ALANINE AMINOTRANSFERASE,ALT 53 U/L (16-63); ALBUMIN 4.1 g/dl (3.4-5.0); ALKALINE PHOSPHATASE 68 U/L (46-116); ANION GAP 13.5 (5-15); ASPARTATE AMNIOTRANSFERASE,AST 25 U/L (15-37); BILIRUBIN TOTAL 0.6 mg/dL (0.2-1.0); BLOOD UREA NITROGEN,BUN 17 mg/dL (7-18); BUN/CREATININE RATIO 12.1 (14-18); CALCIUM 9.4 mg/dL (8.5-10.1); CARBON DIOXIDE,CO2 29 mEq/L (21-32); CHLORIDE,CL 101 mEq/L (98-107); CREATININE 1.4 mg/dL (0.7-1.3); ESTIMATED GFR 56 mL/min (>60); GLUCOSE RANDOM 124 mg/dL (70-99); MAGNESIUM 1.9 mg/dL (1.8-2.4); PROTEIN TOTAL,TP 7.5 g/dl (6.4-8.2); SODIUM,NA 140 mEq/L (136-145); TROPONIN I HIGH SENSITIVITY 47 pg/mL (<=76)
[2023-05-31 13:49] LABS: POTASSIUM,K 3.5 mEq/L (3.5-5.1)
[2023-05-31 14:35] LABS: CORONAVIRUS COVID-19 NAA NEGATIVE (NEGATIVE); INFLUENZA A NAA NEGATIVE (NEGATIVE); RESPIRATORY SYNCYTIAL VIR NAA NEGATIVE (NEGATIVE)
[2023-05-31] MEDS: Levofloxacin/Dextrose 5%-Water 750 MG in Premix Bag 1 BAG IV ONE (14:56)
[2023-05-31 16:35] VITALS: BP 144/97; PULSE 85
== END 2023-05-31 16:26 | disposition home or self-care (01) ==
LOC: JD.ED 12:47
DX: J18.9 Pneumonia, unspecified organism (principal); I10 Essential (primary) hypertension; E78.00 Pure hypercholesterolemia, unspecified; Z79.82 Long term (current) use of aspirin; Z86.16 Personal history of COVID-19; Z79.899 Other long term (current) drug therapy
CPT/HCPCS: 0241U; 36415; 71045; 80053; 83735; 83880; 84484; 85025; 85610; 93005; 96365; 99285; J1956; J3490; 93010; 99283